=== PATIENT | female | born 1950 | race Caucasian/White ===

== ENCOUNTER → 2016-05-03 | Outpatient (CLI) | payer OTHER ==
[~2016-05-03] MED LIST: ADVIN50/60 INH; ALBU1AER9; ASPEC81 PO; AZITTAB PO; CYAN500T PO; FLV400 PO; LISI-725 PO; LSX20 PO; PRLSR20 PO; SIMV20TA2 PO; SNG10 PO; TRAM-10 PO
[2016-05-03 14:18] LABS: BASO % 0.6 %; BASO ABS # 0.03 K/uL (0-0.2); COMPLETE YES; EOS % 7.6 %; HEMATOCRIT 36.9 % (37-47); IG% 0.2 %; LYMPH % 19.3 %; LYMPH ABS # 1.01 K/uL (1.2-3.4); MEAN CELL VOLUME 86.2 fL (80-100); MEAN CORPUSCULAR HEMOGLOBIN 28.3 pg (25-34); MEAN CORPUSCULAR HGB CONC 32.8 g/dl (32-36); MEAN PLATELET VOLUME 10.5 fL (7.4-10.4); MONO % 8.6 %; NEUT % 63.7 %; PLATELET COUNT 270 K/uL (130-400); RED BLOOD COUNT 4.28 M/uL (4.2-5.4); WHITE BLOOD COUNT 5.23 K/uL (4.8-10.8)
[2016-05-03 14:28] LABS: ALT/SGPT 25 U/L (12-78); BLOOD UREA NITROGEN 12 mg/dl (7-18); BUN/CREATININE RATIO 16.8 (10-20); CALCIUM 8.9 mg/dl (8.5-10.1); CARBON DIOXIDE 31 mmol/L (21-32); CHLORIDE 105 mmol/L (98-107); CHOLESTEROL 206 mg/dl (0-200); CREATININE 0.69 mg/dl (0.60-1.20); GLUCOSE 112 mg/dl (70-99); POTASSIUM 4.3 mmol/L (3.5-5.1); SODIUM 143 mmol/L (136-145); TRIGLYCERIDES 124 mg/dl (0-150); VERY LOW DENSITY LIPOPROT CALC 25 mg/dl
[2016-05-03 14:31] LABS: ALB/GLOB RATIO 1.2 (0.9-2); ALKALINE PHOSPHATASE 111 U/L (45-117); AST/SGOT 21 U/L (15-37); HDL CHOLESTEROL 52 mg/dl; LDL CHOLESTEROL CALCULATED 129 mg/dl
== END | disposition home or self-care (01) ==
LOC: C.LABSPEC 13:37
PROVIDERS: ATTEND Family Medicine
DX: I10 Essential (primary) hypertension (principal); E78.2 Mixed hyperlipidemia; K21.9 Gastro-esophageal reflux disease without esophagitis

== ENCOUNTER 2017-05-15 07:14 | Inpatient (IN) | payer OTHER ==
[2017-04-23 10:22] VITALS: Ht 148.6 cm; Wt 94.2 kg
--- NOTE | 2017-04-23 11:04 | PAT Medication Instructions ---
Service Date Apr 23, 2017. Current Home Medication List Albuterol Hfa (Ventolin Hfa), 2-4 PUFFS INH UD PRN for ASTHMA Budesonide/Formoterol Fumarate (Symbicort 160/4.5 Inhaler ), 2 PUFFS INH BID Lisinopril (Lisinopril), 1 TAB PO QAM Omeprazole (Prilosec), 20 MG PO HS Medication Instructions For Your Scheduled Surgery - Hold the following medications the morning of surgery: Lisinopril (Lisinopril), 1 TAB PO QAM - Take the following medications the morning of surgery with a sip of water: Albuterol Hfa (Ventolin Hfa), 2-4 PUFFS INH UD PRN for ASTHMA (IF NEEDED, AND BRING IT WITH YOU TO THE HOSPITAL) Budesonide/Formoterol Fumarate (Symbicort 160/4.5 Inhaler ), 2 PUFFS INH BID - Take the following medications as scheduled the night before surgery: Omeprazole (Prilosec), 20 MG PO HS Albuterol Hfa (Ventolin Hfa), 2-4 PUFFS INH UD PRN for ASTHMA (IF NEEDED) Budesonide/Formoterol Fumarate (Symbicort 160/4.5 Inhaler ), 2 PUFFS INH BID If you have any questions please call us at [phone] or [phone] or [phone]
[2017-04-23 13:26] LABS: BASO % 0.7 %; BASO ABS # 0.04 K/uL (0-0.2); EOS % 7.8 %; EOS ABS # 0.46 K/uL (0-0.5); HEMATOCRIT 36.5 % (37-47); HEMOGLOBIN 11.7 g/dL (12.0-16.0); IG# 0.01 K/uL (0.00-0.02); LYMPH % 22.7 %; LYMPH ABS # 1.34 K/uL (1.2-3.4); MEAN CELL VOLUME 87.1 fL (80-100); MEAN CORPUSCULAR HEMOGLOBIN 27.9 pg (25-34); MEAN CORPUSCULAR HGB CONC 32.1 g/dl (32-36); MEAN PLATELET VOLUME 10.6 fL (7.4-10.4); MONO % 7.8 %; MONO ABS # 0.46 K/uL (0.11-0.59); NEUT % 60.8 %; NEUT ABS # 3.59 K/uL (1.4-6.5); PLATELET COUNT 298 K/uL (130-400); RED CELL DISTRIBUTION WIDTH CV 13.6 % (11.5-14.5); RED CELL DISTRIBUTION WIDTH SD 43.4 fL (36.4-46.3)
[2017-04-23 13:39] LABS: INR 0.9 (0.9-1.1); PTT PATIENT 25.7 SECONDS (21.0-31.0)
[2017-04-23 13:44] LABS: ALBUMIN 3.7 gm/dl (3.4-5.0); CREATININE 0.7 mg/dl (0.60-1.20); POTASSIUM 4.2 mmol/L (3.5-5.1)
--- NOTE | 2017-05-14 12:31 | HISTORY & PHYSICAL EXAMINATION ---
DATE OF ADMISSION: 05/15/2017 CHIEF COMPLAINT: Chronic left knee pain. HISTORY OF PRESENT ILLNESS: A 67-year-old female patient of Dr. Chavez'dago complaining of chronic left knee pain, longstanding, progressively getting worse. The patient has failed conservative treatment including intraarticular injections, narcotic medications, anti-inflammatories and the use a brace and walker. The patient has increased pain with weightbearing activities and her pain does interfere with her activities of daily living. PAST MEDICAL HISTORY: Hypertension, hypercholesterolemia, asthma, sleep apnea, acid reflux, and obesity. SOCIAL HISTORY: Nonsmoker, nondrinker. PAST SURGICAL HISTORY: D&C, x2, hysterectomy, TMJ, ankle fracture on the left, tibial plateau fracture on the left. FAMILY HISTORY: Noncontributory. REVIEW OF SYSTEMS: Chronic left knee pain, otherwise denies any shortness of breath, chest pain, nausea, vomiting or any other joint complaints. MEDICATIONS: Prilosec 20 mg daily, Symbicort 80 mcg/4.5 mcg 2 puffs twice daily, HFA aerosol inhaler 1 the morning and evening, lisinopril 2.5 mg daily, Proventil HFA 90 mcg 2 puffs every 4-6 hours p.r.n. ALLERGIES: INCLUDE CODEINE WHICH IS GI UPSET. PHYSICAL EXAMINATION: GENERAL: Well-developed, well-nourished 67-year-old female in no acute distress. She is alert and oriented x3 and pleasant. HEENT: Normocephalic, atraumatic. Extraocular motions are intact. Pupils are equal and reactive to light. HEART: Regular rate and rhythm, no murmurs appreciated. LUNGS: Clear. ABDOMEN: Soft, nontender, bowel sounds present. EXTREMITIES: Left knee - mild effusion with limited range of motion of 0-100. She has a neutral alignment. The patient has crepitation with passive range of motion. She has 4/5 strength. NEUROLOGIC: Neurovascularly, she is intact in her left lower extremity. DIAGNOSES: Left knee end-stage osteoarthritis, hypertension, hypercholesterolemia, asthma, sleep apnea, acid reflux, and obesity. PLAN: The patient was advised of her diagnosis. Indications, risks, benefits, and postop course have all been reviewed. The patient wishes to proceed with a left total knee arthroplasty. Necessary consent forms, preoperative testing and clearances will be obtained.
[~2017-05-15] VITALS: Ht 148.6 cm; Wt 94.2 kg
[2017-05-15] VITALS (8 sets, daily range): BP systolic 119–172; BP diastolic 65–84; PULSE 65–81; TEMP 36.4–36.9; O2SAT 93–99
[2017-05-15] MEDS: TRANEXAMIC ACID INJ 1,000 MG in SYRINGE 0 ML IV SCH ×2 (06:30→09:45)
[~2017-05-15 07:14] MED LIST changes: +ACETAMINOPHEN 500 MG TAB PO SCH; -ADVIN50/60 INH; -ALBU1AER9; -ASPEC81 PO; -AZITTAB PO; +BUPIVACAINE 0.25% 30 ML VIAL ONE; +BUPIVACAINE 0.5 % 5 MG/1 ML PF 10ML VIAL ONE; +CEFAZOLIN 2000MG IV PUSH 15 ML IV SCH; -CYAN500T PO; +CeleBREX 200 MG CAP PO SCH; +DEXAMETHASONE 4 MG TAB PO SCH; +FAMOTIDINE 20 MG TAB PO SCH; -FLV400 PO; +GABAPENTIN 300 MG CAP PO SCH; +LACTATED RINGER'S 1000ML 1,000 ML IV SCH; -LISI-725 PO; +LSN25 PO; -LSX20 PO; +METOCLOPRAMIDE HCL 10 MG TAB PO SCH; +ROPIVACAINE 5MG/ML 30 ML 150 MG, BUPIVACAINE 0.5% MPF INJ 30 ML, EpINEphrine HCL INJ 0.... INFIL SCH; -SIMV20TA2 PO; -SNG10 PO; +SYMIN160 INH; -TRAM-10 PO; +TRANEXAMIC ACID INJ 1,000 MG in SYRINGE 0 ML IV SCH; +VNTHFA/IN INH
[2017-05-15] MEDS ORDERED: PROPOFOL IV EMULSION 10 MG/ML 20 ML VIAL IV ONE ×2 (07:59→08:48)
[2017-05-15] MEDS ORDERED: EpHEDrine SULFATE 50MG/5ML SYR ONE (07:59)
[2017-05-15] MEDS ORDERED: LIDOCAINE HCL 2% 2 ML VIAL (20MG/ML) ONE (07:59)
[2017-05-15] MEDS ORDERED: MIDAZOLAM HCL 1 MG/ML 2ML VIAL ONE (08:00)
[2017-05-15] MEDS ORDERED: FENTANYL CITRATE INJ 50 MCG/1 ML 2 ML VIAL ONE (08:00)
--- NOTE | 2017-05-15 09:35 | History & Physical Bridge Note ---
H&P Re-Evaluation Bridge Note: I have examined the patient, reviewed the History & Physical and in the interval since the performance of the History & Physical I have noted the following changes of clinical significance: No changes noted
[2017-05-15] MEDS ORDERED: BACITRACIN 50000 UNIT VIAL ONE (09:52)
[2017-05-15] MEDS ORDERED: POVIDONE-IODINE OP SOLN 30 ML BTL ONE (09:52)
[2017-05-15] MEDS ORDERED: ORTHO JOINT ANESTHETIC ONE (09:52)
--- NOTE | 2017-05-15 12:28 | [facility] Post Operative Brief Note ---
Immediate Operative Summary Operative Date May 15, 2017. Pre-Operative Diagnosis Left knee end-stage osteoarthritis,depressed lateral tibial plateau facture,morbid obesity Post-Operative Diagnosis same Procedure(s) Performed Left total knee arthroplasty-cemented,lateral release and increased difficulty due to morbid obesity,application superficial wound vac Surgeon Dr. Chavez Directory Compiler Surgeon(s) Judson Cook PA-C Estimated Blood Loss 15ML Findings Consistent with Post-Op Diagnosis Specimens A. Left knee bone and tissue. Drains 2 hemovac Anesthesia Type MAC [facility]
[2017-05-15] MEDS ORDERED: SOD PHOSPHATE/SOD BIPHOSPHATE ENEMA 132 ML BTL PR PRN (12:30)
[2017-05-15] MEDS ORDERED: ZOLPIDEM TARTRATE 5 MG TAB PO PRN (12:30)
[2017-05-15] MEDS ORDERED: BISACODYL 10 MG SUPP PR PRN (12:30)
[2017-05-15] MEDS ORDERED: ONDANSETRON INJ 2 MG/ML 2 ML VIAL IV PRN (12:30)
[2017-05-15] MEDS ORDERED: ACETAMINOPHEN 325 MG TAB PO PRN (12:30)
[2017-05-15] MEDS ORDERED: MAGNESIUM HYDROXIDE SUSP 30 ML UDC PO PRN (12:30)
[2017-05-15] MEDS ORDERED: MoRPHine SULFATE 2 MG/ML CARP IV PRN (12:30)
[2017-05-15] MEDS ORDERED: METOCLOPRAMIDE HCL INJ 5 MG/ML 2 ML VIAL IV PRN (12:30)
--- NOTE | 2017-05-15 12:49 | DIAGNOSTIC IMAGING REPORT ---
L KNEE 1 OR 2 VIEWS ROUTINE CLINICAL HISTORY: AP/LATERAL IN PACU LEFT KNEE joint replacement COMPARISON: None. DISCUSSION: Anatomic alignment post left knee total arthroplasty. Good contact between prosthetic and underlying bone. Surgical drains are in position. Expected soft tissue postoperative change. IMPRESSION: Anatomic alignment status post total left knee arthroplasty. The above report was generated using voice recognition software. It may contain grammatical, syntax or spelling errors. Electronically signed by: Judson Aquino M.D. 05/15/2017 12:48 PM Dictated Date/Time: 05/15/2017 12:47 PM
--- NOTE | 2017-05-15 12:56 | Anesthesiology Progress Note ---
Anesthesia Post Op Note Date & Time May 15, 2017 at 12:56 Vital Signs Pain Intensity: 0 Vital Signs Past 12 Hours Date Time Temp Pulse Resp B/P (MAP) Pulse Ox O2 Delivery O2 Flow Rate FiO2 05/15/17 12:50 36.4 88 16 146/73 99 Nasal Cannula 4 05/15/17 12:40 87 16 154/77 99 Oxymask 10 05/15/17 12:30 89 16 120/74 99 Oxymask 10 05/15/17 12:23 36.2 91 16 140/68 98 Oxymask 10 05/15/17 08:01 36.9 71 20 172/68 96 Room Air Notes Mental Status: alert / awake / arousable, participated in evaluation Pt Amnestic to Procedure: Yes Nausea / Vomiting: adequately controlled Pain: adequately controlled Airway Patency, RR, SpO2: stable & adequate BP & HR: stable & adequate Hydration State: stable & adequate Anesthetic Complications: no major complications apparent
[2017-05-15] MEDS ORDERED: EpHEDrine SULFATE INJ 50 MG/ML AMP IV PRN (13:00)
[2017-05-15] MEDS ORDERED: ATROPINE SULFATE 0.1 MG/ML 5ML SYR IV PRN (13:00)
--- NOTE | 2017-05-15 14:10 | Medical Consult ---
Consultation Date of Consultation: May 15, 2017. Attending Physician: Gigi Chavez M.D. Reason for Consultation: Post-Operative Management History of Present Illness Ms. Camacho is a 67 y/o female with PMHx of HTN, HLD, Asthma, JEN, and GERD who is S/P L TKA with Wound Vac on 05/15. Patient reports fracturing her L ankle and knee and discomfort has progressed. She currently has no feeling from the waist down due to anesthesia. Therefore currently has no pain. She is resting with eyes closed but easily awakens to verbal stimuli. She reports good control with her BP on Lisinopril. She does not report recent asthma attacks. She carries a diagnosis of JEN but denies CPAP/BiPAP or O2 at night. She denies any cardiac history including WI or CHF. She denies H/O DVT/PE. Past Medical/Surgical History 1. Asthma 2. HTN 3. HLD 4. JEN 5. GERD 6. S/P x 2 7. S/P Hysterectomy Family History Patient reports no known family medical history. Social History Smoking Status: Never Smoker Smokeless Tobacco Use: No Alcohol Use: none Drug Use: none Marital Status: Housing Status: lives with significant other Allergies Coded Allergies: Unclassified Drugs (Verified Allergy, Unknown, SEASONAL ALLERGIES - COUGHING, SNEEZING, TRIGGERS FOR ASTHMA, 05/15/17) Atorvastatin (Verified Adverse Reaction, Unknown, LEG PAINS, 05/15/17) Codeine (Verified Adverse Reaction, Unknown, GI UPSET, 05/15/17) Pravastatin (Verified Adverse Reaction, Unknown, LEG PAINS, 05/15/17) Simvastatin (Verified Adverse Reaction, Unknown, LEG PAINS, 05/15/17) Current Inpatient Medications Current Inpatient Medications Medications (Trade) Dose Ordered Sig/Khanh Route Start Time Stop Time Status Last Admin Dose Admin Miscellaneous Information (Order Awaiting Action) 1 ea QS N/A 05/15/17 16:00 06/14/17 15:59 Budesonide/ Formoterol Fumarate (Symbicort 160/ 4.5 Inh) 2 puffs BID INH 05/15/17 21:00 06/14/17 20:59 Lisinopril (Zestril Tab) 2.5 mg QAM PO 05/16/17 09:00 06/15/17 08:59 Potassium Chloride/Dextrose/ Sod Cl 1,000 ml @ 100 mls/hr Q10H IV 05/15/17 14:00 05/16/17 12:22 Cefazolin Sodium 2000 mg/Syringe 15 ml @ 3.75 mls/ min Q8H IV 05/15/17 18:00 05/16/17 02:03 Celecoxib (CeleBREX CAP) 200 mg BID PO 05/15/17 21:00 06/14/17 20:59 Acetaminophen/ Hydrocodone Bitart ([place] 5/325 Tab) 1 TABLET FOR PAIN RATING... Q4H PRN PO 05/15/17 12:30 05/29/17 12:29 Morphine Sulfate (MoRPHine SULFATE INJ) 2 mg Q2H PRN IV 05/15/17 12:30 05/29/17 12:29 Acetaminophen (Tylenol Tab) 650 mg Q6H PRN PO 05/15/17 12:30 06/14/17 12:29 Magnesium Hydroxide (Milk Of Magnesia Susp) 30 ml Q6H PRN PO 05/15/17 12:30 06/14/17 12:29 Bisacodyl (Dulcolax Supp) 10 mg DAILY PRN FL 05/15/17 12:30 06/14/17 12:29 Sodium Biphosphate/ Sodium Phosphate (Fleet Enema) 132 ml DAILY PRN FL 05/15/17 12:30 06/14/17 12:29 Docusate Sodium (coLACE CAP) 100 mg BID PO 05/15/17 21:00 06/14/17 20:59 Diphenhydramine HCl (Benadryl Cap) 25 mg Q8H PRN PO 05/15/17 12:30 06/14/17 12:29 Zolpidem Tartrate (Ambien Tab) 5 mg HSZ PRN PO 05/15/17 12:30 06/14/17 12:29 Multivitamins (Multivitamin Tab) 1 tab QAM PO 05/16/17 09:00 06/15/17 08:59 Ondansetron HCl (Zofran Inj) 4 mg Q6H PRN IV 05/15/17 12:30 06/14/17 12:29 Metoclopramide HCl (Reglan Inj) 10 mg Q6H PRN IV 05/15/17 12:30 06/14/17 12:29 Pantoprazole Sodium (Protonix Tab) 40 mg QAM PO 05/16/17 09:00 05/19/17 09:01 Tramadol HCl (Ultram Tab) 1 tablet for pain rating... Q4H PRN PO 05/15/17 12:30 06/14/17 12:29 Rivaroxaban (Xarelto Tab) 10 mg Q24H PO 05/15/17 21:30 05/27/17 21:29 Ephedrine Sulfate (EpHEDrine SULFATE INJ) 5 mg Q5M PRN IV 05/15/17 13:00 05/15/17 18:00 Atropine Sulfate (Atropine Sulfate 0.1mg/ml Inj) 0.5 mg Q1M PRN IV 05/15/17 13:00 05/15/17 18:00 Review of Systems General/Constitutional: Denies fever/chills, fatigue ENT: Denies visual changes, nasal drainage, hearing loss, sore throat, trouble swallowing Cardiovascular: Denies chest pain, palpitations, edema Respiratory: Denies cough, sputum, SOB, wheezing, orthopnea GI: Denies nausea, vomiting, abdominal pain, constipation, diarrhea, melena/ hematochezia : Denies dysuria Musculoskeletal: Denies joint/muscle aches, swelling Neurologic: + b/l lower extremity numbness 2/2 anesthesia; Denies dizziness/ lightheadedness Hematologic/Lymphatic: Denies bleeding/clotting abnormalities Skin: Denies rash Physical Exam Date Time Temp Pulse Resp B/P (MAP) Pulse Ox O2 Delivery O2 Flow Rate FiO2 05/15/17 13:40 36.4 76 15 144/80 (101) 97 Nasal Cannula 2.0 05/15/17 13:10 Nasal Cannula 2.0 05/15/17 13:10 Nasal Cannula 2.0 05/15/17 13:10 36.5 81 16 149/80 (103) 97 Nasal Cannula 2.0 05/15/17 12:50 36.4 88 16 146/73 99 Nasal Cannula 4 05/15/17 12:40 87 16 154/77 99 Oxymask 10 05/15/17 12:30 89 16 120/74 99 Oxymask 10 05/15/17 12:23 36.2 91 16 140/68 98 Oxymask 10 05/15/17 08:01 36.9 71 20 172/68 96 Room Air General Appearance: WDWN in NAD who is A&O x 3 HEENT: Head is normocephalic/atraumatic; EOMI; PERRLA; Hearing grossly intact; Mucous membranes moist; Pharynx negative for exudate/lesions Neck: Supple; Trachea midline; Neg JVD Heart: RRR with no M/G/R Lungs: CTA in all lung monet bilaterally; Respirations unlabored; Neg accessory muscle use Abdomen: Soft, non-tender, non-distended; Positive BS x 4 quadrants Extremities: Capillary refill < 2 seconds; Neg cyanosis or edema; JIMY bandage to L knee that is C/D/I with wound vac placed and drain Neurological: Speech clear; no motor or sensory function to b/l lower extremities 2/2 anesthesia Psychiatric: Appropriate mood/affect Skin: Normal Color; Warm/Dry Laboratory Results Last 24 Hours Test 05/15/17 13:45 Assessment & Plan Ms. Camacho is a 67 y/o female with PMHx of HTN, HLD, Asthma, JEN, and GERD who is S/P L TKA with Wound Vac on 05/15. S/P L TKA with Wound Vac on 05/15: - Pain management, IVF, PT/OT, DVT Prophylaxis per primary - DVT Prophylaxis - Xarelto HTN: - Some elevated readings but rather stable - Continue Lisinopril 2.5 mg daily Asthma without Exacerbation/JEN: - Symbicort 2 puffs BID and Ventolin PRN - Reports she does not use night O2 or CPAP/BiPAP for JEN Resident Physician Supervision Note: Pt evaluated independently. I discussed the case with the PA and agree with the findings and plan as documented in the note. Any exceptions or clarifications are listed here: 67 y/o F HTN, HPL, asthma, JEN - post TKA Recovering well - no CP, SOB, N/V or excessive pain OE AAO x 3 S1,2 R CTAB NT, ND No CCE P: IVF, pain control, DVT prophylaxis - PT/OT per ortho Resume antihypertensives AM Does not treat JEN - can apply NC if needed as we would expect some overnight desaturation Cont prescribed inhalers Documented By: Lane Martinez
[2017-05-15] MEDS: D5W AND 1/2NSS + 20MEQ KCL 1,000 ML IV SCH (14:19)
--- NOTE | 2017-05-15 14:44 | OPERATIVE REPORT ---
DATE OF OPERATION: 05/15/2017 INDICATION FOR PROCEDURE: The patient is a 67-year-old female who presents with chronic osteoarthritis of the left knee. She has a history of lateral tibial plateau fracture. This went on to heal. Radiographs demonstrate she has depressed lateral tibial plateau fractures, [id number] in the medial compartment and she has tricompartmental DJD. She also is complicated by morbid obesity, BMI of 42.7. She has very limited range of motion. She has failed all conservative management. PREOPERATIVE DIAGNOSES: End-stage osteoarthritis and posttraumatic osteoarthritis status post tibial plateau fracture, left knee, with morbid obesity, body mass index of 42.7. POSTOPERATIVE DIAGNOSES: Same. PROCEDURE: Left total knee arthroplasty including lateral release, increased difficulty due to morbid obesity, BMI of 42.7, and application of a superficial wound VAC. SURGEON: Dr. Chavez. CATEGORY ANALYST: Judson Cook PA-C. ANESTHESIA: Spinal, adductor nerve block and Orthomix. OPERATIVE PROCEDURE: The patient was taken to the operating room and anesthetized under anesthesia as dictated. She was placed supine on the operating room table. Pneumatic tourniquet was raised over her very obese upper thigh. Her left knee was examined. She had full extension but flexion only to 90 degrees. She had crepitation, no instability. She had small scars from prior surgery. Her left lower extremity was prepped and draped with ChloraPrep in usual sterile fashion. Her leg was elevated, exsanguinated with Esmarch bandage. Pneumatic tourniquet was raised to 350 mmHg because of her obesity. An anterior incision was made across the knee. We had this extended slightly larger than normal because of the obesity and her size. Moderately deep layer of fat was divided down the fascia. Subcutaneous bleeders were cauterized. Subcutaneous flaps were elevated. An incision was made through the medial retinaculum and extended up in the mid third of the quadriceps tendon and extended down to the medial tibial tubercle. Intraarticular findings demonstrate she had grade 4 [id number] medial compartment, grade 4 wear lateral compartment, she had significantly depressed lateral tibial plateau. She had discoid meniscus imbedded into the tibial plateau. She had some grade 2 and 3 wear in the trochlear groove and patellofemoral joint. The patient had tricompartmental osteophytes. She also had intraarticular adhesions in the synovium. She had very stiff knee. To expose the knee, I resected the infrapatellar fat pad, resected the menisci, cruciate ligaments, osteophytes, released the lateral synovial bands, resected some of the fat pad over the anterior femur for placement of the component at the superior articular surface area. The femur was exposed. Intramedullary drill hole was made into the femur. The guide rodolfo was placed. Distal femoral cutting guide for the [employer] total knee arthroplasty system was used. Distal femoral cutting guide was placed in 5 degrees of valgus cut, we did a standard distal femoral cut. Then, we extended the knee, did a subperiosteal peel lateral release, reproduced the width using a freehand cut technique, a 32 patellar component. The drill holes were made for the component. The excess lateral facet was beveled off to prevent any impingement. The femur was re-exposed and the measuring guide was placed onto the femur. Femur sized for a 5, she was somewhere between a 4 and a 5, the 4 would notch, so I chose to do a 5. The drill holes were made in approximately 3 degrees of external rotation to match the epicondylar axis of the femur. The drill holes for the cutting guide were placed and then the 4-in-1 cutting guide was pinned in position, and then the anterior, posterior and chamfer cuts were made. Then, the tibia was subluxed and external tibial cutting guide was adjusted to make a perpendicular cut to the long axis of the tibia. Cut was made below the most deficient lateral side where she had significant depression, so the cut was made just above the tip of the fibula at that level proximally. The bone was very sclerotic in lateral compartment, so we made some additional drill holes there for cement fixation. Then, we used the laminar energy advisor to assess ligamentous balance and we removed any posterior osteophytes and meniscal remnants and the remainder of the PCL. The ligaments were balanced in extension and flexion. The tibia was exposed. A 4 tibial trial was externally rotated in line with the tibial tubercle, pinned in position and a punch for the stem was used. In very sclerotic lateral bone, we had to use a small saw to not split the bone with hard punch due to the sclerotic bone there. Punch was seated fully and then we went ahead and placed the femoral trial in position, centered it, and used the notch cutting devices, placed a collet and did a trial reduction, a 15 poly insert gave balanced ligaments through full range of motion and the patella had some slight lateral liftoff during tracking, so I felt we should go ahead and do a lateral release. So I did a lateral release, leaving as much synovium intact as possible. Then, went ahead and assessed patellar tracking which was central. The trials were removed and the anesthetic cocktail was injected per protocol. The knee was copiously irrigated with pulsatile lavage antibiotic solution and bacitracin. The final components were cemented with Simplex G cement. Final components were the 5 Oxinium [employer] femur, size 4 tibial baseplate, the 15 mm high flex poly insert and then the 32 dome patella. While cement cured, we used Betadine soak protocol. Then, this was irrigated out copiously with antibiotic solution and bacitracin. Then, 2 drains were brought out laterally and connected to Hemovac. The quadriceps tendon and medial retinaculum were closed with interrupted [id number] #1 Vicryl sutures. The knee was taken through full range of motion and repair was secure. We were able to get full extension and flexion to about 115 degrees where the thigh met her calf. The subcutaneous tissues were closed with interrupted 2-0 Vicryl and the skin was closed with adriana and a superficial wound VAC was then applied. Judson Cook PA-C, was my assistant professor of biology, he functioned as assistant professor of biology for the entire procedure, he assisted in patient positioning, prepping, draping, soft tissue retraction, instrument management, and he assisted in subcutaneous and skin closure and placed a superficial wound VAC in place and will participate in postoperative care of the patient. The patient did tolerate the procedure well with about 15 mL of intraoperative blood loss only. I attest to the content of the Intraoperative Record and any orders documented therein. Any exception s are noted below.
[2017-05-15] MEDS: TRAMADOL HCL 50 MG TAB PO PRN (16:47)
[2017-05-15] MEDS ORDERED: NURSING VERBAL MED ORDER ONE (17:30)
[2017-05-15] MEDS: CEFAZOLIN IV 2,000 MG in SYRINGE 0 ML IV SCH (17:42)
[2017-05-15] MEDS ORDERED: ALBUTEROL HFA 8 GM INHALER INH PRN (17:45)
[2017-05-15] MEDS: DOCUSATE SODIUM 100 MG CAP PO SCH (21:11)
[2017-05-15] MEDS: HYDROCODONE/ACETAMIN 5/325MG TAB PO PRN (21:11)
[2017-05-15] MEDS: RIVAROXABAN 10 MG TAB PO SCH (21:12)
[2017-05-15] MEDS: CeleBREX 200 MG CAP PO SCH (21:12)
[2017-05-15] MEDS: BUDESONIDE/FORMOTEROL FUMARATE 160/4.5 60 PUFFS/INHALER INH SCH (21:14)
[2017-05-16 00:10] VITALS: O2SAT 96
[2017-05-16] MEDS: D5W AND 1/2NSS + 20MEQ KCL 1,000 ML IV SCH ×2 (00:15→10:09)
[2017-05-16] MEDS: CEFAZOLIN IV 2,000 MG in SYRINGE 0 ML IV SCH (02:59)
[2017-05-16 03:48] VITALS: BP 117/67; PULSE 67; TEMP 36.7; O2SAT 98
[2017-05-16] MEDS: HYDROCODONE/ACETAMIN 5/325MG TAB PO PRN ×4 (04:59→19:40)
[2017-05-16 07:01] LABS: HEMATOCRIT 30.9 % (37-47); HEMOGLOBIN 10.3 g/dL (12.0-16.0); MEAN CELL VOLUME 85.4 fL (80-100); MEAN CORPUSCULAR HEMOGLOBIN 28.5 pg (25-34); MEAN CORPUSCULAR HGB CONC 33.3 g/dl (32-36); MEAN PLATELET VOLUME 9.4 fL (7.4-10.4); PLATELET COUNT 237 K/uL (130-400); RED CELL DISTRIBUTION WIDTH CV 13.5 % (11.5-14.5); WHITE BLOOD COUNT 10.21 K/uL (4.8-10.8)
[2017-05-16 07:31] VITALS: BP 135/68; PULSE 69; TEMP 36.9; O2SAT 93
[2017-05-16 07:33] LABS: CALCIUM 8.1 mg/dl (8.5-10.1); CREATININE 0.68 mg/dl (0.60-1.20); POTASSIUM 4.3 mmol/L (3.5-5.1)
[2017-05-16] MEDS: BUDESONIDE/FORMOTEROL FUMARATE 160/4.5 60 PUFFS/INHALER INH SCH ×2 (08:55→20:55)
[2017-05-16] MEDS: DOCUSATE SODIUM 100 MG CAP PO SCH ×2 (08:56→20:55)
[2017-05-16] MEDS: MULTIVITAMIN TAB PO SCH (08:56)
[2017-05-16] MEDS: CeleBREX 200 MG CAP PO SCH ×2 (08:56→20:55)
[2017-05-16] MEDS: PANTOprazole SOD 40 MG TAB PO SCH (08:56)
[2017-05-16] MEDS: LISINOPRIL 2.5 MG TAB PO SCH (08:56)
--- NOTE | 2017-05-16 08:56 | Orthopedic Progress Note ---
Orthopedic Progress Note Date of Service May 16, 2017. Subjective Post OP Day: 1 Reports: feeling well, pain controlled w PO medications, Denies: complaints, chest pain, SOB, nausea / vomiting, light headedness, calf pain Objective calves soft nontender, N/V intact, capillary refill less than 2 sec., dressing C /D/I, A&O x3, toes mobile + wound vac Date Time Temp Pulse Resp B/P (MAP) Pulse Ox O2 Delivery O2 Flow Rate FiO2 05/16/17 07:31 36.9 69 19 135/68 (90) 93 Room Air 05/16/17 07:10 Room Air 05/16/17 03:48 36.7 67 16 117/67 (84) 98 Room Air 05/16/17 00:10 96 Room Air 05/15/17 23:15 36.6 79 16 119/65 (83) 94 Room Air 05/15/17 19:47 36.5 65 16 134/73 (93) 93 Room Air 05/15/17 16:06 36.6 75 16 142/84 (103) 95 Room Air 05/15/17 16:05 Room Air 05/15/17 14:54 36.4 74 16 151/83 (105) 99 Nasal Cannula 2.0 05/15/17 14:16 75 16 149/82 (104) 98 Nasal Cannula 2.0 05/15/17 13:40 36.4 76 15 144/80 (101) 97 Nasal Cannula 2.0 05/15/17 13:10 Nasal Cannula 2.0 05/15/17 13:10 Nasal Cannula 2.0 05/15/17 13:10 36.5 81 16 149/80 (103) 97 Nasal Cannula 2.0 05/15/17 12:50 36.4 88 16 146/73 99 Nasal Cannula 4 05/15/17 12:40 87 16 154/77 99 Oxymask 10 05/15/17 12:30 89 16 120/74 99 Oxymask 10 05/15/17 12:23 36.2 91 16 140/68 98 Oxymask 10 Laboratory Results 24 Hours: Test 05/16/17 06:51 Hematocrit 30.9 % Hemoglobin 10.3 g/dL Assessment & Plan Assessment: POD #1, Left TKA Plan: PT/ OT DVT proph- Xarelto D/C planning- [place] first choice vs OPPT Appreciate medicine input Inhouse Planning Pain Management: Celebrex, Ultram, Bath, Morphine, PO Tylenol DVT Prophylaxis: TEDs, SCDs, Xarelto Discharge Planning Discharge Planning: home with oppt, senior care facility, uncertain Pain Management: Celebrex, Ultram, Bath, Morphine, PO Tylenol DVT Prophylaxis: TEDs, SCDs, Xarelto Therapy: Physical Therapy, Occupational Therapy
--- NOTE | 2017-05-16 11:21 | Progress Note ---
Subjective Date of Service: May 16, 2017. Subjective Pt evaluation today including: conversation w/ patient, physical exam, lab review, review of inpatient medication list Pain: left knee pain controlled PO Intake: adequate Voiding: no voiding problems patient doing well, no chest pain, no dyspnea eating well, no vomiting small BM today, + flatus reviewed labs, Hb down slightly, Cr stable Review of Systems Musculoskeletal: + joint pain (left knee) All Other Systems: Reviewed and Negative Medications Current Inpatient Medications Medications (Trade) Dose Ordered Sig/Khanh Route Start Time Stop Time Status Last Admin Dose Admin Miscellaneous Information (Order Awaiting Action) 1 ea QS N/A 05/15/17 16:00 06/14/17 15:59 Budesonide/ Formoterol Fumarate (Symbicort 160/ 4.5 Inh) 2 puffs BID INH 05/15/17 21:00 06/14/17 20:59 05/16/17 08:55 2 PUFFS Lisinopril (Zestril Tab) 2.5 mg QAM PO 05/16/17 09:00 06/15/17 08:59 05/16/17 08:56 2.5 MG Potassium Chloride/Dextrose/ Sod Cl 1,000 ml @ 100 mls/hr Q10H IV 05/15/17 14:00 05/16/17 12:22 05/16/17 10:09 100 MLS/HR Celecoxib (CeleBREX CAP) 200 mg BID PO 05/15/17 21:00 06/14/17 20:59 05/16/17 08:56 200 MG Acetaminophen/ Hydrocodone Bitart ([place] 5/325 Tab) 1 TABLET FOR PAIN RATING... Q4H PRN PO 05/15/17 12:30 05/29/17 12:29 05/16/17 08:59 2 TAB Morphine Sulfate (MoRPHine SULFATE INJ) 2 mg Q2H PRN IV 05/15/17 12:30 05/29/17 12:29 Acetaminophen (Tylenol Tab) 650 mg Q6H PRN PO 05/15/17 12:30 06/14/17 12:29 Magnesium Hydroxide (Milk Of Magnesia Susp) 30 ml Q6H PRN PO 05/15/17 12:30 06/14/17 12:29 Bisacodyl (Dulcolax Supp) 10 mg DAILY PRN AL 05/15/17 12:30 3/9/18 12:29 Sodium Biphosphate/ Sodium Phosphate (Fleet Enema) 132 ml DAILY PRN AL 05/15/17 12:30 06/14/17 12:29 Docusate Sodium (coLACE CAP) 100 mg BID PO 05/15/17 21:00 06/14/17 20:59 05/16/17 08:56 100 MG Diphenhydramine HCl (Benadryl Cap) 25 mg Q8H PRN PO 05/15/17 12:30 06/14/17 12:29 Zolpidem Tartrate (Ambien Tab) 5 mg HSZ PRN PO 05/15/17 12:30 06/14/17 12:29 Multivitamins (Multivitamin Tab) 1 tab QAM PO 05/16/17 09:00 06/15/17 08:59 05/16/17 08:56 1 TAB Ondansetron HCl (Zofran Inj) 4 mg Q6H PRN IV 05/15/17 12:30 06/14/17 12:29 Metoclopramide HCl (Reglan Inj) 10 mg Q6H PRN IV 05/15/17 12:30 06/14/17 12:29 Pantoprazole Sodium (Protonix Tab) 40 mg QAM PO 05/16/17 09:00 05/19/17 09:01 05/16/17 08:56 40 MG Tramadol HCl (Ultram Tab) 1 tablet for pain rating... Q4H PRN PO 05/15/17 12:30 06/14/17 12:29 05/15/17 16:47 100 MG Rivaroxaban (Xarelto Tab) 10 mg Q24H PO 05/15/17 21:30 05/27/17 21:29 05/15/17 21:12 10 MG Albuterol (Ventolin Hfa Inhaler) 2 puffs Q4H PRN INH 05/15/17 17:45 06/14/17 17:44 Objective Vital Signs Date Time Temp Pulse Resp B/P (MAP) Pulse Ox O2 Delivery O2 Flow Rate FiO2 05/16/17 07:31 36.9 69 19 135/68 (90) 93 Room Air 05/16/17 07:10 Room Air 05/16/17 03:48 36.7 67 16 117/67 (84) 98 Room Air 05/16/17 00:10 96 Room Air 05/15/17 23:15 36.6 79 16 119/65 (83) 94 Room Air 05/15/17 19:47 36.5 65 16 134/73 (93) 93 Room Air 05/15/17 16:06 36.6 75 16 142/84 (103) 95 Room Air 05/15/17 16:05 Room Air 05/15/17 14:54 36.4 74 16 151/83 (105) 99 Nasal Cannula 2.0 05/15/17 14:16 75 16 149/82 (104) 98 Nasal Cannula 2.0 05/15/17 13:40 36.4 76 15 144/80 (101) 97 Nasal Cannula 2.0 05/15/17 13:10 Nasal Cannula 2.0 05/15/17 13:10 Nasal Cannula 2.0 05/15/17 13:10 36.5 81 16 149/80 (103) 97 Nasal Cannula 2.0 05/15/17 12:50 36.4 88 16 146/73 99 Nasal Cannula 4 05/15/17 12:40 87 16 154/77 99 Oxymask 10 05/15/17 12:30 89 16 120/74 99 Oxymask 10 05/15/17 12:23 36.2 91 16 140/68 98 Oxymask 10 Physical Exam General Appearance: WD/WN, no apparent distress Eyes: normal inspection, EOMI, sclerae normal ENT: normal ENT inspection, hearing grossly normal, pharynx normal Neck: supple, no adenopathy, no JVD, trachea midline Respiratory/Chest: chest non-tender, lungs clear, normal breath sounds, no respiratory distress, no accessory muscle use Cardiovascular: regular rate, rhythm, no edema, no gallop, no JVD, no murmur Abdomen: normal bowel sounds, non tender, soft, no organomegaly Extremities: no pedal edema, no calf tenderness, normal capillary refill, pelvis stable, + pertinent finding (left knee swollen, tender, decreased ROM) 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, no motor/sensory deficits, alert, normal mood/affect, oriented x 3 Skin: normal color, warm/dry, no rash Lymphatic: no adenopathy Laboratory Results Last 24 Hours Test 05/16/17 06:51 White Blood Count 10.21 K/uL Red Blood Count 3.62 M/uL Hemoglobin 10.3 g/dL Hematocrit 30.9 % Mean Corpuscular Volume 85.4 fL Mean Corpuscular Hemoglobin 28.5 pg Mean Corpuscular Hemoglobin Concent 33.3 g/dl RDW Standard Deviation 42.0 fL RDW Coefficient of Variation 13.5 % Platelet Count 237 K/uL Mean Platelet Volume 9.4 fL Sodium Level 135 mmol/L Potassium Level 4.3 mmol/L Chloride Level 103 mmol/L Carbon Dioxide Level 27 mmol/L Anion Gap 5.0 mmol/L Blood Urea Nitrogen 11 mg/dl Creatinine 0.68 mg/dl Est Creatinine Clear Calc Drug Dose 80.8 ml/min Estimated GFR () 105.6 Estimated GFR (Non- 91.2 BUN/Creatinine Ratio 16.9 Random Glucose 161 mg/dl Calcium Level 8.1 mg/dl Hepatitis C Antibody Screen NEG Assessment and Plan Ms. Camacho is a 67 y/o female with PMHx of HTN, HLD, Asthma, JEN, and GERD who is S/P L TKA with Wound Vac on 05/15. S/P L TKA with Wound Vac on 05/15: POD 1 - Pain well controlled today - eating and drinking well, Cr stable, stop IV fluids today - small BM today, continue Colace - DVT Prophylaxis - Xarelto HTN: - Some elevated readings but rather stable - Continue Lisinopril 2.5 mg daily Asthma without Exacerbation/JEN: - Symbicort 2 puffs BID and Ventolin PRN - Reports she does not use night O2 or CPAP/BiPAP for JEN - lungs clear today labs are stable, vitals stable will sign off at this time, please contact for any new issues that arise
[2017-05-16] MEDS: TRAMADOL HCL 50 MG TAB PO PRN (15:01)
[2017-05-16 15:39] VITALS: BP 127/66; PULSE 89; TEMP 37; O2SAT 97
[2017-05-16] MEDS: RIVAROXABAN 10 MG TAB PO SCH (20:55)
[2017-05-16 23:15] VITALS: BP 151/75; PULSE 88; TEMP 36.8; O2SAT 92
[2017-05-17 00:15] VITALS: O2SAT 96
[2017-05-17] MEDS: TRAMADOL HCL 50 MG TAB PO PRN (00:27)
[2017-05-17 07:19] LABS: HEMATOCRIT 30.3 % (37-47); HEMOGLOBIN 9.8 g/dL (12.0-16.0); MEAN CELL VOLUME 86.8 fL (80-100); MEAN CORPUSCULAR HEMOGLOBIN 28.1 pg (25-34); MEAN CORPUSCULAR HGB CONC 32.3 g/dl (32-36); MEAN PLATELET VOLUME 9.5 fL (7.4-10.4); PLATELET COUNT 210 K/uL (130-400); RED CELL DISTRIBUTION WIDTH SD 44.4 fL (36.4-46.3); WHITE BLOOD COUNT 6.55 K/uL (4.8-10.8)
[2017-05-17 07:39] VITALS: BP 137/75; PULSE 77; TEMP 36.6; O2SAT 93
[2017-05-17 07:40] LABS: CALCIUM 8.3 mg/dl (8.5-10.1); CREATININE 0.62 mg/dl (0.60-1.20); POTASSIUM 3.6 mmol/L (3.5-5.1)
--- NOTE | 2017-05-17 08:33 | Orthopedic Progress Note ---
Orthopedic Progress Note Date of Service May 17, 2017. Subjective Post OP Day: 2 Reports: feeling well, nausea / vomiting, pain controlled w PO medications, Denies: complaints, chest pain, SOB, light headedness, calf pain Additional Notes: Having some nausea this AM. Objective calves soft nontender, N/V intact, capillary refill less than 2 sec., dressing C /D/I, A&O x3, toes mobile Prevena wound vac in tact. Date Time Temp Pulse Resp B/P (MAP) Pulse Ox O2 Delivery O2 Flow Rate FiO2 05/17/17 07:39 36.6 77 16 137/75 (95) 93 Room Air 05/17/17 00:15 96 Room Air 05/16/17 23:15 36.8 88 18 151/75 (100) 92 Room Air 05/16/17 15:50 Room Air 05/16/17 15:39 37.0 89 16 127/66 (86) 97 Room Air Laboratory Results 24 Hours: Test 05/17/17 07:07 Hematocrit 30.3 % Hemoglobin 9.8 g/dL Assessment & Plan Assessment: POD #2, Left TKA Plan: PT/ OT DVT proph- Xarelto D/C planning- [place], accepted for Saturday. Appreciate medicine input Inhouse Planning Pain Management: Celebrex, Ultram, [place], Morphine, PO Tylenol DVT Prophylaxis: TEDs, SCDs, Xarelto Discharge Planning Discharge Planning: home with oppt, correction facility, uncertain Pain Management: Celebrex, Ultram, [place], Morphine, PO Tylenol DVT Prophylaxis: TEDs, SCDs, Xarelto Therapy: Physical Therapy, Occupational Therapy
[2017-05-17] MEDS: MULTIVITAMIN TAB PO SCH (09:01)
[2017-05-17] MEDS: LISINOPRIL 2.5 MG TAB PO SCH (09:01)
[2017-05-17] MEDS: DOCUSATE SODIUM 100 MG CAP PO SCH ×2 (09:01→21:09)
[2017-05-17] MEDS: CeleBREX 200 MG CAP PO SCH ×2 (09:01→21:09)
[2017-05-17] MEDS: PANTOprazole SOD 40 MG TAB PO SCH (09:01)
[2017-05-17] MEDS: BUDESONIDE/FORMOTEROL FUMARATE 160/4.5 60 PUFFS/INHALER INH SCH ×2 (09:02→21:08)
[2017-05-17] MEDS: HYDROCODONE/ACETAMIN 5/325MG TAB PO PRN ×3 (09:04→21:55)
[2017-05-17 14:55] VITALS: BP 118/67; PULSE 86; TEMP 36.5; O2SAT 95
[2017-05-17] MEDS: RIVAROXABAN 10 MG TAB PO SCH (21:08)
[2017-05-17 23:14] VITALS: BP 131/73; PULSE 100; TEMP 37.1; O2SAT 94
[2017-05-18 07:41] VITALS: BP 131/77; PULSE 77; TEMP 36.9; O2SAT 95
[2017-05-18] MEDS: BUDESONIDE/FORMOTEROL FUMARATE 160/4.5 60 PUFFS/INHALER INH SCH (08:55)
[2017-05-18] MEDS: LISINOPRIL 2.5 MG TAB PO SCH (08:55)
[2017-05-18] MEDS: DOCUSATE SODIUM 100 MG CAP PO SCH (08:55)
[2017-05-18] MEDS: MULTIVITAMIN TAB PO SCH (08:55)
[2017-05-18] MEDS: PANTOprazole SOD 40 MG TAB PO SCH (08:55)
[2017-05-18] MEDS: CeleBREX 200 MG CAP PO SCH (08:55)
[2017-05-18] MEDS: TRAMADOL HCL 50 MG TAB PO PRN (08:56)
--- NOTE | 2017-05-18 10:13 | Orthopedic Progress Note ---
Orthopedic Progress Note Date of Service May 18, 2017. Subjective Post OP Day: 3 Reports: feeling well, pain controlled w PO medications, Denies: complaints, chest pain, SOB, nausea / vomiting, light headedness, calf pain Objective calves soft nontender, N/V intact, capillary refill less than 2 sec., dressing C /D/I, A&O x3, toes mobile PREVENA IN TACT Date Time Temp Pulse Resp B/P (MAP) Pulse Ox O2 Delivery O2 Flow Rate FiO2 05/18/17 07:50 Room Air 05/18/17 07:41 36.9 77 19 131/77 (95) 95 Room Air 05/17/17 23:55 Room Air 05/17/17 23:14 37.1 100 16 131/73 (92) 94 Room Air 05/17/17 15:44 Room Air 05/17/17 14:55 36.5 86 18 118/67 (84) 95 Room Air Assessment & Plan Assessment: POD #3, Left TKA Plan: PT/ OT DVT proph- Xarelto D/C planning- [place], TODAY Appreciate medicine input Attending Addendum: I have seen and examined the patient, and agree with BENNY Cook's assessment and plan. I am covering Orthopedic Surgery call for Dr. Dupree, who is unavailable. Remy Garnett MD Inhouse Planning Pain Management: Celebrex, Ultram, [place], Morphine, PO Tylenol DVT Prophylaxis: TEDs, SCDs, Xarelto Discharge Planning Discharge Planning: home with oppt, alf facility, uncertain Pain Management: Celebrex, Ultram, [place], Morphine, PO Tylenol DVT Prophylaxis: TEDs, SCDs, Xarelto Therapy: Physical Therapy, Occupational Therapy
[2017-05-18] MEDS ORDERED: LSN25 PO (10:19)
[2017-05-18] MEDS ORDERED: PRLSR20 PO (10:19)
[2017-05-18] MEDS ORDERED: SYMIN160 INH (10:19)
[2017-05-18] MEDS ORDERED: MULT-890 PO (10:19)
[2017-05-18] MEDS ORDERED: CLC100 PO (10:19)
[2017-05-18] MEDS ORDERED: XRL10 PO (10:19)
[2017-05-18] MEDS ORDERED: VNTHFA/IN INH (10:19)
[2017-05-18] MEDS ORDERED: CLB200 PO (10:19)
[2017-05-18] MEDS ORDERED: ACET-1047 PO (10:19)
[2017-05-18] MEDS ORDERED: AMB5 PO (10:19)
[2017-05-18] MEDS ORDERED: ONDA8TAB6 PO (10:19)
[2017-05-18] MEDS ORDERED: HYDR-5688 PO (10:19)
--- NOTE | 2017-05-18 10:22 | Discharge Instructions ---
Discharge Instructions Date of Service May 18, 2017. Admission Reason for Admission: Left Knee Degenerative Joint Disease Discharge Discharge Diagnosis / Problem: LEFT TKA Discharge Goals Goal(s): Improve function Activity Recommendations Activity Level: Assistance Required . Additional Information Patient informed of condition: Yes Advance Directives: Yes DNR: No Level of Care: Skilled Communicable Disease: No Prognosis: Improving Vivas Catheter: No Instructions / Follow-Up Instructions / Follow-Up ACTIVITY RECOMMENDATIONS: SELF CARE INSTRUCTIONS AFTER TOTAL KNEE REPLACEMENT A. You may need to continue a physical therapy program after discharge from the hospital. There are several options available to you. Your doctor will assist you in selecting the best one for you. 1. An out-patient facility 2 to 3 times a week for therapy or home therapy. 2. Continue working on all exercises taught to you in the hospital. Your goals should be to increase bending of your knee to 90 degrees and beyond and to fully straighten your knee. B. You may progress at your own pace from walking with a walker or crutches to a cane; then to no assistive devices. C. Make walking a part of your daily routine. Be up as much as comfortable with rest periods throughout the day. Rest with leg elevation is very important. Use the ice wrap frequently for the first 3-4 weeks. D. There are no restrictions on activities. You may ride in a car, shop, participate in wire preparation worker and all social activities. E. Wear the long elastic stockings (JUDY hose) 20 hours a day for 2 weeks after surgery. They can be removed several times a day for laundering and for a bath. F. You may shower, no tub baths until cleared by your doctor. SPECIAL CARE INSTRUCTIONS: VERY IMPORTANT TO READ AND REVIEW A. There are a few signs you need to watch for after you are home. Call [facility] [place] if you notice any of the followin. Increased severe knee pain. Some pain is expected especially when you exercise. 2. Increased swelling in your leg or knee; pain or swelling of the calf muscle in either lower leg. 3. Any fluid drainage from the incision. 4. Shortness of breath or chest pain. B. Please call [facility] at if you have any concerns or questions about your operation or recovery. The doctor or his nurse will return your call promptly. C. You must take antibiotics before dental work, bladder, bowel or other surgery. Your doctor will provide you with a permanent care to carry describing this precaution. IMPORTANT: * REMEMBER TO TAKE ASPIRIN, 81 MG, TWICE DAILY FOR 4 WEEKS UNLESS OTHERWISE DIRECTED. THIS IS YOUR BLOOD THINNER. * HIGH RISK PATIENTS MAY BE PRESCRIBED A STRONGER BLOOD THINNER. THIS WILL BE PROVIDED AT DISCHARGE. * CALL IF INCREASED PAIN, REDNESS, DRAINAGE OR FEVER GREATER THAT 101. * WEAR JUDY HOSE 20 HOURS PER DAY FOR 2 WEEKS. * YOU MAY HAVE A LARGE BAND-AID LIKE DRESSING (SILVERON). THIS WILL REMAIN ON YOUR INCISION FOR 7 DAYS, THEN CAN BE REMOVED. IF INCISION IS LEAKING THROUGH DRESSING, CALL THE OFFICE . FOLLOW UP VISIT: If appointment is not already scheduled: Please call [facility] [place] to make a follow-up appointment for 2 weeks after your surgery at . YOU HAVE A WOUND VAC OVER YOUR INCISION, REMOVE AND DISCARD ALL PARTS 1 WEEK POST OP, REPLACE WITH STERILE DRESSINGS DAILY UNTIL FOLLOW UP IN OFFICE. Current Hospital Diet Patient's current hospital diet: Regular Diet Discharge Diet Recommended Diet: Regular Diet Procedures Procedures Performed: Left total knee arthroplasty-cemented,lateral release and increased difficulty due to morbid obesity,application superficial wound vac Pending Studies Studies pending at discharge: no Laboratory Results Hemoglobin A1c Test 04/23/17 11:14 Range/Units Estimated Average Glucose 126 mg/dl Hemoglobin A1c 6.0 H 4.5-5.6 % Medical Emergencies . Who to Call and When: Medical Emergencies: If at any time you feel your situation is an emergency, please call 911 immediately. . Non-Emergent Contact Non-Emergency issues call your: Primary Care Provider . . "Provider Documentation" section prepared by Judson Cook. . Core Measure Problem Core Measures: VTE VTE Core Measures Date of VTE Diagnosis: May 18, 2017 Time of VTE Diagnosis: 10:22 Reason no anticoag overlap I/P: Treatment provided - N/A Reason no anticoag overlap @DC: Treatment provided - N/A [place] Drug Monitoring Program Search Results: patient reviewed within database, no issues identified
[2017-05-18 10:32] VITALS: BP 131/77; PULSE 77; TEMP 36.9; O2SAT 95
== END 2017-05-18 13:03 | DRG 470 ==
LOC: C.ACU 07:14 → C.3E 09:31 → ENRESERV 12:42
PROVIDERS: ADMIT Orthopaedic Surgery Sports Medicine; ATTEND Orthopaedic Surgery Sports Medicine
PROC: 0SRD0J9 Replacement of Left Knee Joint with Synthetic Substitute, Cemented, Open Approach (ICD-10-PCS; principal; 2017-05-15 09:20)
DX: M17.12 Unilateral primary osteoarthritis, left knee (principal); Z68.41 Body mass index [BMI] 40.0-44.9, adult; I10 Essential (primary) hypertension; E78.00 Pure hypercholesterolemia, unspecified; J45.909 Unspecified asthma, uncomplicated; G47.30 Sleep apnea, unspecified; K21.9 Gastro-esophageal reflux disease without esophagitis; E66.01 Morbid (severe) obesity due to excess calories; Z88.5 Allergy status to narcotic agent

== ENCOUNTER → 2017-07-22 | Outpatient (CLI) | payer OTHER ==
[~2017-07-22] MED LIST changes: +ACET-1047 PO; -ACETAMINOPHEN 500 MG TAB PO SCH; +AMB5 PO; -BUPIVACAINE 0.25% 30 ML VIAL ONE; -BUPIVACAINE 0.5 % 5 MG/1 ML PF 10ML VIAL ONE; -CEFAZOLIN 2000MG IV PUSH 15 ML IV SCH; +CLB200 PO; +CLC100 PO; -CeleBREX 200 MG CAP PO SCH; -DEXAMETHASONE 4 MG TAB PO SCH; -FAMOTIDINE 20 MG TAB PO SCH; -GABAPENTIN 300 MG CAP PO SCH; +HYDR-5688 PO; -LACTATED RINGER'S 1000ML 1,000 ML IV SCH; -METOCLOPRAMIDE HCL 10 MG TAB PO SCH; +MULT-890 PO; +ONDA-170 PO; -ROPIVACAINE 5MG/ML 30 ML 150 MG, BUPIVACAINE 0.5% MPF INJ 30 ML, EpINEphrine HCL INJ 0.... INFIL SCH; -TRANEXAMIC ACID INJ 1,000 MG in SYRINGE 0 ML IV SCH; +XRL10 PO
[2017-07-22 13:07] LABS: BASO ABS # 0.04 K/uL (0-0.2); EOS % 10.4 %; EOS ABS # 0.41 K/uL (0-0.5); HEMOGLOBIN 11.8 g/dL (12.0-16.0); LYMPH % 23.5 %; LYMPH ABS # 0.93 K/uL (1.2-3.4); MEAN CELL VOLUME 85.5 fL (80-100); MEAN CORPUSCULAR HGB CONC 32.8 g/dl (32-36); MEAN PLATELET VOLUME 9.9 fL (7.4-10.4); MONO % 9.3 %; MONO ABS # 0.37 K/uL (0.11-0.59); NEUT % 55.8 %; NEUT ABS # 2.21 K/uL (1.4-6.5); PLATELET COUNT 296 K/uL (130-400); RED CELL DISTRIBUTION WIDTH CV 14.6 % (11.5-14.5); RED CELL DISTRIBUTION WIDTH SD 45.9 fL (36.4-46.3); WHITE BLOOD COUNT 3.96 K/uL (4.8-10.8)
[2017-07-22 14:01] LABS: ALBUMIN 3.9 gm/dl (3.4-5.0); ALKALINE PHOSPHATASE 110 U/L (45-117); ALT/SGPT 17 U/L (12-78); AST/SGOT 16 U/L (15-37); BLOOD UREA NITROGEN 12 mg/dl (7-18); CALCIUM 9.2 mg/dl (8.5-10.1); CARBON DIOXIDE 29 mmol/L (21-32); CHOLESTEROL 214 mg/dl (0-200); CREATININE 0.72 mg/dl (0.60-1.20); GLUCOSE 108 mg/dl (70-99); POTASSIUM 4.1 mmol/L (3.5-5.1); SODIUM 137 mmol/L (136-145); TOTAL PROTEIN 7.5 gm/dl (6.4-8.2)
[2017-07-22 14:02] LABS: LDL CHOLESTEROL CALCULATED 141 mg/dl
== END | disposition home or self-care (01) ==
LOC: C.LABSPEC 12:18
PROVIDERS: ATTEND Family Medicine
DX: I10 Essential (primary) hypertension (principal); E78.2 Mixed hyperlipidemia; K21.9 Gastro-esophageal reflux disease without esophagitis

== ENCOUNTER 2022-11-09 12:09 | Inpatient (IN) ==
--- NOTE | 2022-11-09 12:49 | Emergency Department Note ---
History of Present Illness General Chief complaint: Confusion Stated complaint: ABNORMAL SPEECH, CONFUSION, Time Seen by Provider: 11/09/22 12:17 History of Present Illness 72-year-old female presents emergency department with a 2-day history of a slight headache and mild confusion and some difficulty finding words. States that she had a headache on Saturday she was trying to text on Saturday could not find certain words and did not remember how to text. Over the past 48 hours now she continues to have some difficulty finding words and sometimes her speech seems to be off. Patient is in the upper extremities or lower extremities. Patient denies any difficulty walking. Patient is not currently on blood thinners. Patient did not hit her head. There is been no recent infections. Patient was concerned due to difficulty in finding words at times Home Medications Medication Instructions Recorded Confirmed Type acetaminophen 500 mg tablet 500 mg PO Q6H PRN Pain 2 days #20 08/20/17 09/27/22 History (Tylenol Extra Strength) tabs albuterol sulfate 90 mcg/actuation 1 puff inhalation Q6H PRN SOB 10/06/18 09/27/22 History aerosol inhaler biotin 1,000 mcg chewable tablet 2,000 mcg PO DAILY 10/19/21 09/27/22 History lovastatin 20 mg tablet 20 mg PO DAILY #90 tabs 06/02/22 09/27/22 Rx albuterol sulfate 2.5 mg/3 mL 2.5 mg (3 mL) inhalation QID PRN 06/05/22 09/27/22 Rx (0.083 %) solution for nebulization shortness of breath or wheezing #1,080 mL apple cider vinegar 500 mg tablet 500 mg PO DAILY #90 tabs 09/27/22 09/27/22 Rx fexofenadine 180 mg tablet 180 mg PO DAILY #30 tabs 09/27/22 09/27/22 Rx (Chinyere Allergy) fluticasone 500 mcg-salmeterol 50 1 inh inhalation BID #3 ea 09/27/22 09/27/22 Rx mcg/dose blistr powdr for inhalation (Advair Diskus) omeprazole 20 mg capsule,delayed 20 mg PO DAILY #90 caps 09/27/22 09/27/22 Rx release lisinopril 5 mg tablet 5 mg PO DAILY #90 tabs 10/22/22 Rx Allergies Allergy/AdvReac Type Severity Reaction Status Date / Time atorvastatin AdvReac Unknown LEG PAINS Verified 09/27/22 10:20 codeine AdvReac Unknown GI UPSET Verified 09/27/22 10:20 pravastatin AdvReac Unknown LEG PAINS Verified 09/27/22 10:20 simvastatin AdvReac Unknown LEG PAINS Verified 09/27/22 10:20 cephalexin [From Keflex] AdvReac convulsions Verified 09/27/22 10:20 Unclassified Drugs Allergy Unknown SEASONAL Uncoded 09/27/22 10:20 ALLERGIES - COUGHING, SNEEZING, TRIGGERS FOR ASTHMA Past Med/Surg History Medical History Acid reflux Asthma Benign paroxysmal positional vertigo HTN (hypertension) Hyperlipidemia Mycobacterium avium complex HX OF Osteoarthritis Pneumonia due to COVID-19 virus Sleep apnea NO DEVICE Surgical History Cataract LEFT H/O dilation and curettage H/O: section History of bunionectomy History of hysterectomy REMOVED LEFT OVARY History of open reduction and internal fixation (ORIF) procedure LEFT ANKLE Hx of cardiac cath NEGATIVE FINDING Hx of colonoscopy 08/30/2017 Hx of temporomandibular joint disorder REPAIR OF TMJ Hx of total knee replacement LEFT S/P sinus surgery S/P tonsillectomy Family History Father Myocardial infarction Skin cancer Lung cancer Heart disease Mother Heart disease Hypertension Alzheimer disease Brother Hypertension Aunt Colorectal cancer Denies family history of Ovarian cancer Prostate cancer Breast cancer Social History Smoking Status: Never smoker Second Hand Exposure: Yes (FATHER); Do You Dip or Chew Tobacco: No; Hx Alcohol Use: No Hx Substance Use: No Preferred Language: Tongan Communication Ability: Effective Visual Impairment: Limited Hearing Ability: Normal Center Line Cutter Operator Required: No Beliefs That Will Affect Care: None marital status: Current Living Situation: Spouse current occupational status: retired How many Children do You have: 2 Feels Safe at Home: Yes Childhood Exposure to Second-Hand Smoke: Yes (Father ) Diet: regular Diet Comment: Regular diet caffeine: Yes (Coffee ) during the past year weight has: decreased > 10 lbs Dental Care, Regularly: Yes Physical Activity Frequency: 3-4 Times per Week Seatbelt Use: always Sunscreen Use: No Do you think of yourself as: straight/heterosexual Assistive Devices: Denture - Lower and Glasses Review of Systems A total of 10 systems reviewed and were otherwise negative Neurologic: + headache(s), + abnormal speech and + confusion Physical Exam Vital Signs Vital Signs - 24 hr 11/09/22 12:11 11/09/22 13:10 Temperature 36.6 C Temperature Source Temporal Artery Scan Pulse Rate 71 68 Respiratory Rate 20 Blood Pressure 218/91 H Blood Pressure Mean 133 Pulse Oximetry 99 Oxygen Delivery Method Room Air Sepsis Recent Fever Within 48 Hours No Sepsis New/Unexplained Change in Mental Status N/A Sepsis Action Taken by Nursing No Action Required GENERAL: Patient is awake alert in no acute distress patient is resting comfortably and showing no signs of anxiety EYES: The conjunctivae are clear. The pupils are round and reactive. EARS, NOSE, MOUTH AND THROAT: The nose is without any evidence of any deformity. Mucous membranes are moist. Tongue is midline. NECK: The neck is nontender and supple. RESPIRATORY: Normal respiratory effort is noted there is no evidence of wheezing rhonchi or rales CARDIOVASCULAR: Regular rate and rhythm noted there no murmurs rubs or gallops normal S1 normal S2. GASTROINTESTINAL: The abdomen is soft. Abdomen is nontender. BACK: No midline tenderness or or step-off noted range of motion in flexion extension as well as rotation no signs of muscle spasm noted MUSCULOSKELETAL/EXTREMITIES: There is no evidence of gross deformity full range of motion is noted in the hips and shoulders. SKIN: There is no obvious evidence of any rash. There are no petechiae, pallor or cyanosis noted. NEUROLOGIC: Patient is awake alert and oriented x3 strength is symmetric; NIH 0; GCS of 15, normal speech, normal strength in the upper and lower extremities Course Reevaluation(s) Reevaluation #1: Patient resting in no distress on repeat examination NIH of 0 Time: 15:05 Consultations Consultation #1: Case was discussed with the [facility] hospitalist for admission. Time: 15:05 Administered Medications Discontinued Medications Ioversol (Ioversol 350 Mg 125ml Prefilled Syringe) 118 ml IV ONCE ONE Stop: 11/09/22 13:41 Last Admin: 11/09/22 13:40 Dose: 118 ml Documented By: TANIYA Critical Care Time Critical Care Time: Yes Total Critical Care Time: 30 I have personally spent greater than 30 minutes of critical care time in the direct management of this patient. This includes bedside care, interpretation of diagnostic studies, and testing, discussion with consultants, patient, and family members, and other required patient management activities. These minutes are in excess of all separately billable procedures. Medical Decision Making Medical Records Attestation: I reviewed the patient's medical records. Home Medications Current Medication List: was personally reviewed by me Laboratory Data Attestation: I reviewed the patient's lab results. Labs interpreted by me are unremarkable 11/09/22 12:23 11/09/22 12: Lab Results 11/09/22 11/09/22 11/09/22 Range/Units 12:23 12: 12:23 WBC 6.20 (4.8-10.8) K/ul RBC 4.48 (4.20-5.40) M/uL Hgb 12.8 (12.0-16.0) g/dl Hct 39.1 (37.0-47.0) % MCV 87.3 (80.0-100.0) fL MCH 28.6 (25.0-34.0) pg MCHC 32.7 (32.0-36.0) g/dL RDW Std Deviation 42.2 (36.4-46.3) fL RDW Coeff of Kaylny 13.2 (11.5-14.5) % Plt Count 275 (130-400) K/uL MPV 10.3 (9.4-12.4) fL Immature Gran % (Auto) 0.3 % Neut % (Auto) 70.1 % Lymph % (Auto) 20.2 % Charlotte % (Auto) 6.1 % Eos % (Auto) 2.7 % Baso % (Auto) 0.6 % Neut # (Auto) 4.34 (1.40-6.50) K/uL Lymph # (Auto) 1.25 (1.2-3.4) K/uL Charlotte # (Auto) 0.38 (0.11-0.59) K/uL Eos # (Auto) 0.17 (0-0.50) K/uL Baso # (Auto) 0.04 (0-0.2) K/uL Immature Gran # (Auto) 0.02 (0.01-0.20) K/uL PT 9.8 (9.0-12.0) Seconds INR 0.9 (0.9-1.1) APTT 25.9 (21.0-31.0) Seconds PTT Ratio 0.9 Sodium 140 (136-145) mmol/L Potassium 3.8 (3.5-5.1) mmol/L Chloride 103 (98-107) mmol/L Carbon Dioxide 29 (21-32) mmol/L Anion Gap 8 (3-11) BUN 9 (6-23) mg/dl Creatinine 0.73 (0.6-1.2) mg/dl Est Cr Clr Drug Dosing Not Reportable Est GFR ( Amer) 96.0 ml/min Est GFR (Non-Af Amer) 82.9 ml/min BUN/Creatinine Ratio 12.3 (10-20) Glucose 128 H (70-99(Fasting)) mg/dl POC Glucose (70-99) mg/dl Calcium 9.7 (8.6-10.3) mg/dl Magnesium 2.0 (1.7-2.4) mg/dl Total Bilirubin 0.5 (0.2-1.0) mg/dl AST 19 (13-39) U/L ALT 10 (7-52) U/L Alkaline Phosphatase 122 H (34-104) U/L Troponin I High Sens 6.4 (0-14) pg/ml Total Protein 7.5 (6.0-8.3) gm/dl Albumin 4.5 (3.4-5.0) gm/dl Globulin 3.0 (2.5-4.0) gm/dl Albumin/Globulin Ratio 1.5 (0.9-2) 11/09/22 Range/Units 12:30 WBC (4.8-10.8) K/ul RBC (4.20-5.40) M/uL Hgb (12.0-16.0) g/dl Hct (37.0-47.0) % MCV (80.0-100.0) fL MCH (25.0-34.0) pg MCHC (32.0-36.0) g/dL RDW Std Deviation (36.4-46.3) fL RDW Coeff of Kaylyn (11.5-14.5) % Plt Count (130-400) K/uL MPV (9.4-12.4) fL Immature Gran % (Auto) % Neut % (Auto) % Lymph % (Auto) % Charlotte % (Auto) % Eos % (Auto) % Baso % (Auto) % Neut # (Auto) (1.40-6.50) K/uL Lymph # (Auto) (1.2-3.4) K/uL Charlotte # (Auto) (0.11-0.59) K/uL Eos # (Auto) (0-0.50) K/uL Baso # (Auto) (0-0.2) K/uL Immature Gran # (Auto) (0.01-0.20) K/uL PT (9.0-12.0) Seconds INR (0.9-1.1) APTT (21.0-31.0) Seconds PTT Ratio Sodium (136-145) mmol/L Potassium (3.5-5.1) mmol/L Chloride (98-107) mmol/L Carbon Dioxide (21-32) mmol/L Anion Gap (3-11) BUN (6-23) mg/dl Creatinine (0.6-1.2) mg/dl Est Cr Clr Drug Dosing Est GFR ( Amer) ml/min Est GFR (Non-Af Amer) ml/min BUN/Creatinine Ratio (10-20) Glucose (70-99(Fasting)) mg/dl POC Glucose 125 H (70-99) mg/dl Calcium (8.6-10.3) mg/dl Magnesium (1.7-2.4) mg/dl Total Bilirubin (0.2-1.0) mg/dl AST (13-39) U/L ALT (7-52) U/L Alkaline Phosphatase (34-104) U/L Troponin I High Sens (0-14) pg/ml Total Protein (6.0-8.3) gm/dl Albumin (3.4-5.0) gm/dl Globulin (2.5-4.0) gm/dl Albumin/Globulin Ratio (0.9-2) Imaging Data Attestation: I personally reviewed and interpreted this imaging study as follows: My Impression: Chest x-ray interpreted by me negative for infiltrate CT of the brain and per my interpretation negative for intracranial hemorrhage Radiologist's Impression: Head CT 11/09/22 12:18 CT head/brain wo con CLINICAL HISTORY: 72 years-old Female with neuro deficit, acute stroke suspected. Acute stroke like symptoms TECHNIQUE: Multiple axial CT images of the head were obtained without contrast. A dose lowering technique was utilized adhering to the principles of ALARA. COMPARISON: CTA head of same day FINDINGS: No acute intracranial hemorrhage, midline shift, intracranial mass, hydrocephalus, territorial ischemia or abnormal extra-axial collection. Mild involutional changes. The calvarium is intact. Moderate size right mastoid effusion. Mild mucosal thickening of the paranasal sinuses. Anterior maxillary ORIF changes. Prior bilateral lens repair. IMPRESSION: No acute intracranial abnormality. ACT 112: Negative or not required by law. The above report was generated using voice recognition software. It may contain grammatical, syntax or spelling errors. Electronically signed by: Keron Mock M.D. 11/09/2022 2:36 PM Head CTA 11/09/22 12:18 CTA ANGIOGRAPHY OF THE HEAD CLINICAL HISTORY: neuro deficit, acute stroke suspected COMPARISON STUDY: Sinus CT July 17, 2011. TECHNIQUE: Helical axial images of the head were obtained following uneventful intravenous administration of 118 cc of Optiray. Sagittal and coronal reconstructions were viewed as well as maximal intensity projections on an independent 3-D workstation. Automated exposure control was utilized for the study. A dose lowering technique was utilized adhering to the principles of ALARA. CT DOSE: 980.34 mGy.cm FINDINGS: No acute intracranial hemorrhage is identified on this contrast enhanced exam. There is no intracranial aneurysm. There is apparent short segment occlusion with immediate reconstitution of the distal left M1 segment on axial image 100 of 135. Severe stenosis could appear similar however the vessel appears to be occluded for a short segment. Otherwise, no additional sites of intracranial occlusion are present. There is mild plaque within the bilateral cavernous carotids without severe stenosis. There is no occlusion within the posterior circulation. There is no dissection within the intracranial vessels. IMPRESSION: 1. Suspected short segment occlusion with immediate reconstitution of the distal left M1 segment. A small thrombus cannot be excluded and findings could be correlated with acute left MCA territory infarct. Severe stenosis could appear similar although is considered less likely. 2. No additional sites of vessel occlusion. No intracranial aneurysm. ACT 112: Negative or not required by law. Electronically signed by: Too Vidal M.D. 11/09/2022 2:38 PM Neck CTA 11/09/22 12:18 NECK CTA HISTORY: neuro deficit, acute stroke suspected TECHNIQUE: Multiaxial CT images of the neck were performed following the intravenous administration of contrast to evaluate the major cervical vessels. 3 D/MIP images were also obtained. Sagittal and coronal reformats were reviewed. All measurements were calculated based on NASCET criteria. A dose lowering technique was utilized adhering to the principles of ALARA. COMPARISON STUDY: None. FINDINGS: The aortic arch and proximal great vessels are widely patent. There is no significant stenosis, occlusion, or dissection identified within the bilateral common carotid, internal carotid, or vertebral arteries. Mild calcified plaque within the bilateral carotid bifurcations most pronounced on the left. Postoperative changes seen within the mandible/maxilla. IMPRESSION: No significant stenosis, occlusion, or dissection identified within the carotid or vertebral arteries. ACT 112: Negative or not required by law. Electronically signed by: Mann Frankel M.D. 11/09/2022 2:14 PM Chest X-Ray 11/09/22 12:33 XR chest 1V portable HISTORY: neuro deficit, acute stroke suspected COMPARISON: Chest 07/01/2018. FINDINGS: The cardiac silhouette remains mildly enlarged. Small left basilar linear densities persist. This favors scarring or subsegmental atelectasis. Otherwise, the lungs are clear. No pleural effusions. No pneumothorax. IMPRESSION: No significant change compared to the prior study. No acute process. ACT 112: Negative or not required by law. Electronically signed by: Mann Frankel M.D. 11/09/2022 1:37 PM ECG Data Attestation: I personally reviewed and interpreted this ECG as follows: Additional Comments: EKG interpreted by me normal sinus rhythm rate of 68 normal intervals normal axis no obvious ST segment elevation or depression Telemetry ordered by me, normal sinus rhythm rate of 68 MDM Narrative Medical decision making differential diagnosis includes CVA, TIA, intracranial hemorrhage, hypertensive crisis, transient global amnesia, electrolyte abnormality Plan is to check CTs, EKG, chest x-ray Patient is not a tPA candidate currently her symptoms are greater than 48 hours now Independent history was provided to me by the patient's at bedside Patient's symptoms suggestive of stroke, patient's greater than 48 hours of symptom onset. Patient's CT angio is distal likely no thrombectomy required, patient's not a tPA candidate at this time. Patient will be admitted for further evaluation and treatment of stroke Impression & Plan HTN (hypertension), Acute CVA (cerebrovascular accident) Discharge Plan Visit Data Chief Complaint: Confusion Stated Complaint: ABNORMAL SPEECH, CONFUSION, ED Provider: Danial Deras Discharge Problem: HTN (hypertension), Acute CVA (cerebrovascular accident) Patient Disposition: Admitted As Inpatient Forms Stand Alone Forms: [facility] Prescriptions Prescriptions: No Action acetaminophen [Tylenol Extra Strength] 500 mg Tablet 500 mg PO Q6H PRN (Reason: Pain) 2 Days Qty: 20 lovastatin 20 mg tablet 20 mg PO DAILY Qty: 90 1RF albuterol sulfate 2.5 mg /3 mL (0.083 %) solution for nebulization 2.5 mg inhalation QID PRN (Reason: shortness of breath or wheezing) Qty: 1080 1RF Rx Instructions: 90 day supply lisinopril 5 mg tablet 5 mg PO DAILY Qty: 90 3RF biotin 1,000 mcg tablet,chewable 2,000 mcg PO DAILY omeprazole 20 mg capsule,delayed release(DR/EC) 20 mg PO DAILY Qty: 90 3RF fexofenadine [Chinyere Allergy] 180 mg tablet 180 mg PO DAILY Qty: 30 0RF apple cider vinegar 500 mg tablet 500 mg PO DAILY Qty: 90 0RF fluticasone propion-salmeterol [Advair Diskus] 500-50 mcg/dose blister with device 1 inh inhalation BID Qty: 3 1RF albuterol sulfate 90 mcg/actuation Hfa Aerosol Inhaler 1 puff INHALATION Q6H PRN (Reason: SOB) Referrals Referrals: Shelby Colon DO [Primary Care Provider] -
[2022-11-09 12:59] LABS: Basophils # (auto) 0.04 K/uL (0-0.2); Basophils % (auto) 0.6 %; Eosinophils # (auto) 0.17 K/uL (0-0.50); Eosinophils % (auto) 2.7 %; Hematocrit (blood only) 39.1 % (37.0-47.0); Hemoglobin 12.8 g/dl (12.0-16.0); Immature Granulocytes # (auto) 0.02 K/uL (0.01-0.20); Immature Granulocytes % (auto) 0.3 %; Lymphocytes # (auto) 1.25 K/uL (1.2-3.4); Lymphocytes % (auto) 20.2 %; Mean Corpuscular Hemoglobin 28.6 pg (25.0-34.0); Mean Corpuscular Hgb Conc 32.7 g/dL (32.0-36.0); Mean Corpuscular Volume 87.3 fL (80.0-100.0); Mean Platelet Volume 10.3 fL (9.4-12.4); Monocytes # (auto) 0.38 K/uL (0.11-0.59); Monocytes % (auto) 6.1 %; Neutrophils # (auto) 4.34 K/uL (1.40-6.50); Neutrophils % (auto) 70.1 %; Platelet Count 275 K/uL (130-400); RDW Coefficient of Variation 13.2 % (11.5-14.5); RDW Standard Deviation 42.2 fL (36.4-46.3); Red Blood Count 4.48 M/uL (4.20-5.40)
[2022-11-09 13:14] LABS: Alanine Aminotransferase 10 U/L (7-52); Albumin Globulin Ratio 1.5 (0.9-2); Albumin Level 4.5 gm/dl (3.4-5.0); Alkaline Phosphatase 122 U/L (34-104); Anion Gap 8 (3-11); Aspartate Aminotransferase 19 U/L (13-39); BUN Creatinine Ratio 12.3 (10-20); Bilirubin,Total 0.5 mg/dl (0.2-1.0); Blood Urea Nitrogen 9 mg/dl (6-23); Calcium 9.7 mg/dl (8.6-10.3); Carbon Dioxide 29 mmol/L (21-32); Chloride 103 mmol/L (98-107); Est GFR (Non-African American) 82.9 ml/min; Glucose 128 mg/dl (70-99(Fasting)); Potassium 3.8 mmol/L (3.5-5.1); Sodium 140 mmol/L (136-145); Total Protein 7.5 gm/dl (6.0-8.3)
[2022-11-09 13:20] LABS: Troponin I High Sensitivity 6.4 pg/ml (0-14)
[2022-11-09 13:30] LABS: INR 0.9 (0.9-1.1); Partial Thromboplastin Ratio 0.9; Partial Thromboplastin Time 25.9 Seconds (21.0-31.0); Prothrombin Time 9.8 Seconds (9.0-12.0)
--- NOTE | 2022-11-09 13:39 | XRay Report ---
XR chest 1V portable HISTORY: neuro deficit, acute stroke suspected COMPARISON: Chest 07/01/2018. FINDINGS: The cardiac silhouette remains mildly enlarged. Small left basilar linear densities persist . This favors scarring or subsegmental atelectasis. Otherwise, the lungs are clear. No pleural effusi ons. No pneumothorax. IMPRESSION: No significant change compared to the prior study. No acute process. ACT 112: Negative or not required by law. Electronically signed by: Mann Frankel M.D. 11/09/2022 1:37 PM
[2022-11-09] MEDS ORDERED: IOVERSOL 350 MG 125mL Prefilled Syringe IV ONE (13:40)
--- NOTE | 2022-11-09 14:17 | CT Scan Report ---
NECK CTA HISTORY: neuro deficit, acute stroke suspected TECHNIQUE: Multiaxial CT images of the neck were performed following the intravenous administration o f contrast to evaluate the major cervical vessels. 3D/MIP images were also obtained. Sagittal and cor onal reformats were reviewed. All measurements were calculated based on NASCET criteria. A dose low ering technique was utilized adhering to the principles of ALARA. COMPARISON STUDY: None. FINDINGS: The aortic arch and proximal great vessels are widely patent. There is no significant sten osis, occlusion, or dissection identified within the bilateral common carotid, internal carotid, or v ertebral arteries. Mild calcified plaque within the bilateral carotid bifurcations most pronounced on the left. Postoperative changes seen within the mandible/maxilla. IMPRESSION: No significant stenosis, occlusion, or dissection identified within the carotid or vertebral arteries . ACT 112: Negative or not required by law. Electronically signed by: Mann Frankel M.D. 11/09/2022 2:14 PM
--- NOTE | 2022-11-09 14:39 | CT Scan Report ---
CT head/brain wo con CLINICAL HISTORY: 72 years-old Female with neuro deficit, acute stroke suspected. Acute stroke like symptoms TECHNIQUE: Multiple axial CT images of the head were obtained without contrast. A dose lowering tech nique was utilized adhering to the principles of ALARA. COMPARISON: CTA head of same day FINDINGS: No acute intracranial hemorrhage, midline shift, intracranial mass, hydrocephalus, territorial ischem ia or abnormal extra-axial collection. Mild involutional changes. The calvarium is intact. Moderate size right mastoid effusion. Mild mucosal thickening of the parana rj sinuses. Anterior maxillary ORIF changes. Prior bilateral lens repair. IMPRESSION: No acute intracranial abnormality. ACT 112: Negative or not required by law. The above report was generated using voice recognition software. It may contain grammatical, syntax o r spelling errors. Electronically signed by: Keron Mock M.D. 11/09/2022 2:36 PM
--- NOTE | 2022-11-09 14:40 | CT Scan Report ---
CTA ANGIOGRAPHY OF THE HEAD CLINICAL HISTORY: neuro deficit, acute stroke suspected COMPARISON STUDY: Sinus CT July 17, 2011. TECHNIQUE: Helical axial images of the head were obtained following uneventful intravenous administr ation of 118 cc of Optiray. Sagittal and coronal reconstructions were viewed as well as maximal inten sity projections on an independent 3-D workstation. Automated exposure control was utilized for the study. A dose lowering technique was utilized adhering to the principles of ALARA. CT DOSE: 980.34 mGy.cm FINDINGS: No acute intracranial hemorrhage is identified on this contrast enhanced exam. There is no intracranial aneurysm. There is apparent short segment occlusion with immediate reconstitution of the distal left M1 segment on axial image 100 of 135. Severe stenosis could appear similar however the v essel appears to be occluded for a short segment. Otherwise, no additional sites of intracranial occl usion are present. There is mild plaque within the bilateral cavernous carotids without severe stenos is. There is no occlusion within the posterior circulation. There is no dissection within the intracr anial vessels. IMPRESSION: 1. Suspected short segment occlusion with immediate reconstitution of the distal left M1 segment. A s mall thrombus cannot be excluded and findings could be correlated with acute left MCA territory infar ct. Severe stenosis could appear similar although is considered less likely. 2. No additional sites of vessel occlusion. No intracranial aneurysm. ACT 112: Negative or not required by law. Electronically signed by: Too Vidal M.D. 11/09/2022 2:38 PM
--- NOTE | 2022-11-09 14:57 | History & Physical Report ---
Date of Service November 09, 2022 Assessment & Plan (1) Acute CVA (cerebrovascular accident): Plan: Acute CVA, M2 occlusion Onset of symptoms with expressive aphasia 2 days prior to admission, no symptoms yesterday, Ryan presents with focal expressive aphasia NIHSS 0, other than expressive aphasia no other neurologic symptoms. She does not have dysarthria, no receptive aphasia, and expressive word finding difficulty includes both speech/text/written word Given stuttering course and distant CTA:1. Suspected short segment occlusion with immediate reconstitution of the distal left M1 segment. A small thrombus cannot be excluded and findings could be correlated with acute left MCA territory infarct. Severe stenosis could appear similar although is considered less likely.2. No additional sites of vessel occlusion. No intracranial aneurysm. CThead: No acute findings EKG: NSR, no history of A-fib MRI pending Discussed with neurology. Agree with dual antiplatelet therapy for 3 weeks, then transition to Plavix monotherapy. Distal segment occlusion not amenable to thrombectomy, while outside the window for thrombolytics. Given initial symptoms approximately 48 hours ago will defer permissive hypertension parameters and treat to goal SBP 180/90. May defer formal consultation unless complicated course develops. Patient has history of hypertension on lisinopril. Is hypertensive on admission, lisinopril increased and adjunct amlodipine added Hyperlipidemia Intolerant to Lipitor, and 1 other statin Tolerate lovastatin 20 mg, increase to 40 mg Asthma No acute exacerbation Continue home inhalers DVT prophylaxis: Lovenox Disposition: PCU for IV blood pressure management CODE STATUS: DNR/DNI Diet: Heart healthy (2) HTN (hypertension): (3) Hyperlipidemia: (4) HTN (hypertension): (5) Asthma: (6) Acid reflux: History of Present Illness Primary Care Provider: Shelby Colon DO On Saturday 'something happened'. Was having acute word finding difficulty. No dysarthria. yetserday improved, but today was having difficulty finding the right words and 'cant make words to go right.' Had trouble texting and writing. Receptive language is normally. +expressive aphasia. No weakness, numbness, tingling +L sided heachache intermittently since saturday not currently present. +ttp. On was having some numbness/tingling behind he No chest pain or chest pressure No hx of stroke or clots no T2DM hx HTN, high today and over 200. no history of RI Hx JEN --> supposed to be on CPAP Asthma well controlled +severe myalgias on lipitor in the past. Tried one other statin, then was able to tolerate lovastatin. on lisinopril. took today. no other Headache, hypertension NIHSS 0 today Distal and resolved, not a candidate for thrombectomy Medical History: Reviewed Medications: Reviewed Surgical History: Reviewed Family history: Reviewed Allergies: Reviewed Social History: No tobacco. Code Status: DNR/DNI Allergies Allergy/AdvReac Type Severity Reaction Status Date / Time atorvastatin AdvReac Unknown LEG PAINS Verified 11/09/22 15:23 codeine AdvReac Unknown GI UPSET Verified 11/09/22 15:23 pravastatin AdvReac Unknown LEG PAINS Verified 11/09/22 15:23 simvastatin AdvReac Unknown LEG PAINS Verified 11/09/22 15:23 cephalexin [From Keflex] AdvReac convulsions Verified 11/09/22 15:23 Unclassified Drugs Allergy Unknown SEASONAL Uncoded 11/09/22 15:23 ALLERGIES - COUGHING, SNEEZING, TRIGGERS FOR ASTHMA Home Medications Medication Instructions Recorded Confirmed Type acetaminophen 500 mg tablet 500 mg PO Q6H PRN Pain 2 days #20 08/20/17 09/27/22 History (Tylenol Extra Strength) tabs albuterol sulfate 90 mcg/actuation 1 puff inhalation Q6H PRN SOB 10/06/18 09/27/22 History aerosol inhaler fexofenadine 180 mg tablet 180 mg PO DAILY #30 tabs 09/27/22 09/27/22 Rx ([facility]) fluticasone 500 mcg-salmeterol 50 1 inh inhalation BID #3 ea 09/27/22 09/27/22 Rx mcg/dose blistr powdr for inhalation (Advair Diskus) lisinopril 5 mg tablet 5 mg PO DAILY #90 tabs 10/22/22 Rx lovastatin 20 mg tablet 20 mg PO HS 11/09/22 11/09/22 History omeprazole 20 mg capsule,delayed 20 mg PO QPM 11/09/22 11/09/22 History release Past Med/Surg History Medical History Acid reflux Asthma Benign paroxysmal positional vertigo HTN (hypertension) Hyperlipidemia Mycobacterium avium complex HX OF Osteoarthritis Pneumonia due to COVID-19 virus Sleep apnea NO DEVICE Surgical History Cataract LEFT H/O dilation and curettage H/O: section History of bunionectomy History of hysterectomy REMOVED LEFT OVARY History of open reduction and internal fixation (ORIF) procedure LEFT ANKLE Hx of cardiac cath NEGATIVE FINDING Hx of colonoscopy 08/30/2017 Hx of temporomandibular joint disorder REPAIR OF TMJ Hx of total knee replacement LEFT S/P sinus surgery S/P tonsillectomy Family History Father Myocardial infarction Skin cancer Lung cancer Heart disease Mother Heart disease Hypertension Alzheimer disease Brother Hypertension Aunt Colorectal cancer Denies family history of Ovarian cancer Prostate cancer Breast cancer Social History Smoking Status: Never smoker Second Hand Exposure: Yes (FATHER); Do You Dip or Chew Tobacco: No; Hx Alcohol Use: No Hx Substance Use: No Preferred Language: Citizen Of [place] Communication Ability: Effective Visual Impairment: Limited Hearing Ability: Normal Government Service Executive Required: No Beliefs That Will Affect Care: None marital status: Current Living Situation: Spouse current occupational status: retired How many Children do You have: 2 Feels Safe at Home: Yes Childhood Exposure to Second-Hand Smoke: Yes (Father ) Diet: regular Diet Comment: Regular diet caffeine: Yes (Coffee ) during the past year weight has: decreased > 10 lbs Dental Care, Regularly: Yes Physical Activity Frequency: 3-4 Times per Week Seatbelt Use: always Sunscreen Use: No Do you think of yourself as: straight/heterosexual Assistive Devices: Denture - Lower and Glasses Review of Systems Review of Systems: General: A&Ox3. NAD. Cooperative. HEENT: Atraumatic, normocephalic. Pulm: CTAB A&P. -wheezes, -rales, -rhonchi. Symmetrical chest rise. No increased work of breathing. No respiratory distress. Cardiac: RRR, -mrg. Radial pulses intact and symmetrical. Abdominal: Nontender, nondistended, soft. BS present. CRANIAL NERVES: II: Pupils equal and reactive, no relative afferent pupillary defect, no VF cuts III, IV, : EOM intact, no gaze preference or deviation, no nystagmus. V: normal sensation in V1, V2, and V3 segments bilaterally VII: no asymmetry, no nasolabial fold flattening VIII: normal hearing to speech IX, X: normal palatal elevation, no uvular deviation XI: 5/5 head turn and 5/5 shoulder shrug bilaterally XII: midline tongue protrusion MOTOR: RUE: 5/5 flight test supervisor strength, finger flexion/extension, interosseus LUE: 5/5 flight test supervisor strength, finger flexion/extension, interosseus RLE: 5/5 to hip flexion ankle dorsiflexion/plantarflexion LLE: 5/5 to hip flexion, ankle dorsiflexion/plantarflexion no clonus SENSORY: Normal to touch in upper and lower extremities without deficit or asymmetry Results & Data Results & Data Vital Signs (Past 12 Hours) Vital Signs Temp Pulse Resp BP Pulse Ox O2 Del Method 11/09/22 13:10 68 11/09/22 12:11 36.6 C 71 20 218/91 H 99 Room Air PG Care Time/CCT Total # of Minutes Spent Total Time Spent with Patient: Total time spent is greater than 50% in coordination of care (as documented) at patient's floor/unit and/or counseling patient: Coding Level of Care Code 87176 INT INP/OBS CARE 3/75MIN Diagnoses Acute CVA (cerebrovascular accident) I63.9 HTN (hypertension) I10 Hyperlipidemia E78.5 Asthma J45.909 Acid reflux K21.9
[2022-11-09] MEDS ORDERED: amLODIPine BESYLATE 5 MG TAB PO ONE (15:23)
[2022-11-09] MEDS ORDERED: LABETALOL HCL IV 5 MG/ML 20ML IV STA (15:23)
[2022-11-09] MEDS ORDERED: CLOPIDOGREL BISULFATE 300 MG TAB PO STA (15:27)
[2022-11-09] MEDS ORDERED: LABETALOL HCL IV 5 MG/ML 20ML IV PRN (15:27)
[2022-11-09] MEDS ORDERED: LORazepam 1 MG TAB PO PRN (15:33)
[2022-11-09] MEDS ORDERED: ACETAMINOPHEN 500 MG TAB PO PRN (16:44)
[2022-11-09] MEDS ORDERED: PHARMACIST DISCHARGE MED REC CONSULT PRN (16:44)
[2022-11-09] MEDS ORDERED: ALBUTEROL HFA 8 GM INHALER INH PRN (16:44)
--- NOTE | 2022-11-09 19:44 | Magnetic Resonance Report ---
Exam(s): MRI HEAD Without Contrast EXAM: MR Head Without Intravenous Contrast CLINICAL HISTORY: Reason for exam: CVA/TIA, HTN. TECHNIQUE: Magnetic resonance images of the head/brain without intravenous contrast in multiple planes. COMPARISON: CT 11/09/22 FINDINGS: Brain: Patchy gyriform areas of restricted diffusion in the left parietal lobe and small focus in the left frontal lobe. Senescent changes with small vessel disease. Ventricles: No hydrocephalus. Bones/joints: Unremarkable. Sinuses: Mild debris in the right maxillary sinus. No acute sinusitis. Mastoid air cells: Right mastoid opacification. Orbits: Cataract surgery. IMPRESSION: Patchy gyriform areas of restricted diffusion in the left parietal lobe and small focus in the left frontal lobe. Finding suggest acute infarcts. Electronically signed by: Elvia Henson M.D. 11/09/22 19:43 PM
[2022-11-09] MEDS: FLUTICASONE/VILANTEROL 200/25MCG 14 PUFFS/INHALER INH SCH (20:16)
[2022-11-09] MEDS: PANTOprazole 40 MG TAB PO SCH (20:17)
[2022-11-09] MEDS: LOVASTATIN 20 MG TAB PO SCH (20:18)
[2022-11-09] MEDS: ASPIRIN 81 MG ECTAB PO SCH (20:18)
[2022-11-10 06:01] LABS: Basophils # (auto) 0.04 K/uL (0-0.2); Basophils % (auto) 0.8 %; Eosinophils # (auto) 0.33 K/uL (0-0.50); Eosinophils % (auto) 6.4 %; Hematocrit (blood only) 34.9 % (37.0-47.0); Hemoglobin 11.4 g/dl (12.0-16.0); Immature Granulocytes # (auto) 0.01 K/uL (0.01-0.20); Immature Granulocytes % (auto) 0.2 %; Lymphocytes # (auto) 1.31 K/uL (1.2-3.4); Lymphocytes % (auto) 25.5 %; Mean Corpuscular Hemoglobin 28.4 pg (25.0-34.0); Mean Corpuscular Hgb Conc 32.7 g/dL (32.0-36.0); Mean Corpuscular Volume 86.8 fL (80.0-100.0); Mean Platelet Volume 10.5 fL (9.4-12.4); Monocytes # (auto) 0.42 K/uL (0.11-0.59); Monocytes % (auto) 8.2 %; Neutrophils # (auto) 3.02 K/uL (1.40-6.50); Neutrophils % (auto) 58.9 %; Platelet Count 241 K/uL (130-400); RDW Coefficient of Variation 13.2 % (11.5-14.5); RDW Standard Deviation 41.8 fL (36.4-46.3); Red Blood Count 4.02 M/uL (4.20-5.40); White Blood Count 5.13 K/ul (4.8-10.8)
[2022-11-10 06:06] LABS: BUN Creatinine Ratio 15.1 (10-20); Calcium 9.1 mg/dl (8.6-10.3); Chol HDL Ratio 3.3 (0-5); Creatinine Clr Calc Pharmacy 66.4 ml/min; Est GFR (Non-African American) 82.9 ml/min; Potassium 3.8 mmol/L (3.5-5.1)
--- NOTE | 2022-11-10 08:10 | Hospitalist Progress Note ---
Date of Service November 10, 2022 Assessment & Plan (1) Acute CVA (cerebrovascular accident): (2) HTN (hypertension): (3) Hyperlipidemia: (4) Asthma: (5) Acid reflux: Plan #Acute CVA M2 occlusion Expressive aphasia includes speech/text/written word No dysarthria, no difficulty with comprehension NIHSS0 EKG NSR, no hx afib Per neuro: DAPT x3wks-->Plavix monotherapy, distal segmental occlusion not amenable to thrombectomy, outside window for thrombolytics Per speech therapy: will need continued services outpatient for aphasia, apraxia, and reading comprehension. Pt agreeable to home health. #HTN Delayed stroke presentation Treat to goal 180/90 Lisinopril 5mg, labetalol 5mg q5min #HLD lovastatin 40mg #Asthma Breo albuterol PRN #GERD Protonix 40mg Admission and Anticipated Discharge Date Admission Date: November 09, 2022 Supervising Physician Co-Signing Physician Notes I personally examined the patient and verified all [place] points of history and exam, discussed case, and agree with decision making with Dr Sierra still some difficulty word finding. No other problems. Extensive discussion about stroke and secondary risk reduction, discussed med management. Discussed outpatient rhythm monitoring. Discussed untreated sleep apnea and complications. Vitals noted, in general she is awake and alert pleasant no distress. HEENT normocephalic atraumatic mucous membranes moist. Breathing unlabored no acce ssory muscle use good effort. Neuro shows her to have some slow speech and difficulty with word finding most of the time, every now and then she will have bursts of somewhat fluent speech which makes her quite happy. CVAmed management/secondary risk reduction/speech/PT/OT. Hopefully home soon. Incidental note of pulmonary hypertension on echocardiogramafter further questioning, she has known sleep apnea, but has not used her CPAP and so long she is certain the machine is probably somewhere between outdated and moldy. Probably been at least a decade. Set up for repeat sleep study/start over. Educated extensively. Answered all questions the best my ability and to patient/'s satisfaction. Subjective 72 yo female PMHx HTN, HLD, GERD, Asthma, Osteoarthritis, and Sleep Apnea admitted for acute CVA. Beginning 11/07/22 pt began having symptoms of word finding difficulty without dysarthria. Began to improve 11/08/22. Acutely worsening 11/09/22 word finding difficultly with word finding, texting, and writing. Receptive language is normal throughout her course. Found to have M2 occlusion. This AM appears to be improving slightly. She was able to speak in short, simple sentences. Still having word-finding difficulty. She is frustrated. Admits to headache but denies changes in vision, chest pain, palpitations, SOB, N/V/D, dysuria. Review of Systems Review of Systems: reviewed, per HPI Physical Exam Physical Exam: General: patient resting comfortably, NAD, non-toxic in appearance, AA&O x 4, difficulty with word finding but able to communicate somewhat effectively and follows commands. Skin: warm, dry, intact HEENT: NC/AT, anicteric sclera, conjunctiva without injection, moist mucus membranes, trachea midline, no thyromegaly, no JVD Heart: +S1/S2, regular, no m/r/g Lungs: equal air entry bilaterally, no rales/rhonchi/wheezes Abd: +BS, soft, NT/ND, no masses/organomegaly/ascites Ext: warm, no clubbing/cyanosis or edema Neuro: nonfocal, patient AA&O x 4, continues to have word-finding difficulty, no facial droop, moving all extremities on command. Results & Data Results & Data Vital Signs (Past 12 Hours) Vital Signs Temp Pulse Pulse Resp BP Pulse Ox O2 Del Method 11/10/22 04:03 36.5 C 66 18 152/75 H 96 Room Air 11/09/22 22:47 36.5 C 78 18 145/80 H 96 Room Air 11/09/22 22:51 72 Laboratory Results Abnormal lab results 11/09/22 11/09/22 11/10/22 Range/Units 12: 12:30 05:21 RBC 4.02 L (4.20-5.40) M/uL Hgb 11.4 L (12.0-16.0) g/dl Hct 34.9 L (37.0-47.0) % Glucose 128 H (70-99(Fasting)) mg/dl POC Glucose 125 H (70-99) mg/dl Alkaline Phosphatase 122 H (34-104) U/L 11/10/22 Range/Units 05:21 RBC (4.20-5.40) M/uL Hgb (12.0-16.0) g/dl Hct (37.0-47.0) % Glucose 111 H (70-99(Fasting)) mg/dl POC Glucose (70-99) mg/dl Alkaline Phosphatase (34-104) U/L Diagnostic Findings CTA: 1. Suspected short segment occlusion with immediate reconstitution of the distal left M1 segment. A small thrombus cannot be excluded and findings could be correlated with acute left MCA territory infarct. Severe stenosis could appear similar although is considered less likely. 2. No additional sites of vessel occlusion. No intracranial aneurysm. CThead: No acute findings Resident Activity Tracking Resident Involvement: Resident Care Provided Care Provided: Adult [facility] Medicine
[2022-11-10] MEDS: ASPIRIN 81 MG ECTAB PO SCH (08:13)
[2022-11-10] MEDS: CLOPIDOGREL BISULFATE 75 MG TAB PO SCH (08:13)
[2022-11-10] MEDS: FEXOFENADINE HCL 180 MG TAB PO SCH (08:14)
[2022-11-10] MEDS: FLUTICASONE/VILANTEROL 200/25MCG 14 PUFFS/INHALER INH SCH (08:15)
[2022-11-10 08:31] LABS: Estimated Average Glucose 131 mg/dl; Hemoglobin A1C 6.2 % (4.5-5.6)
[2022-11-10] MEDS: lisinopril 5 MG TAB PO SCH (11:24)
--- NOTE | 2022-11-10 11:43 | XCELERA ---
[id number]
--- NOTE | 2022-11-10 18:49 | Billing Data ---
Date of Service November 10, 2022 Coding Level of Care Code 99090 SUB INP/OBS CARE MIN
[2022-11-10] MEDS: LOVASTATIN 20 MG TAB PO SCH (20:15)
[2022-11-10] MEDS: PANTOprazole 40 MG TAB PO SCH (20:15)
[2022-11-11 06:21] LABS: Basophils # (auto) 0.03 K/uL (0-0.2); Basophils % (auto) 0.5 %; Eosinophils # (auto) 0.33 K/uL (0-0.50); Eosinophils % (auto) 5.7 %; Hematocrit (blood only) 35.5 % (37.0-47.0); Hemoglobin 11.8 g/dl (12.0-16.0); Immature Granulocytes # (auto) 0.01 K/uL (0.01-0.20); Immature Granulocytes % (auto) 0.2 %; Lymphocytes # (auto) 1.41 K/uL (1.2-3.4); Lymphocytes % (auto) 24.3 %; Mean Corpuscular Hemoglobin 28.6 pg (25.0-34.0); Mean Corpuscular Hgb Conc 33.2 g/dL (32.0-36.0); Mean Corpuscular Volume 86.2 fL (80.0-100.0); Mean Platelet Volume 10.5 fL (9.4-12.4); Monocytes # (auto) 0.53 K/uL (0.11-0.59); Monocytes % (auto) 9.1 %; Neutrophils % (auto) 60.2 %; Platelet Count 239 K/uL (130-400); RDW Coefficient of Variation 13.2 % (11.5-14.5); RDW Standard Deviation 41.2 fL (36.4-46.3); Red Blood Count 4.12 M/uL (4.20-5.40); White Blood Count 5.81 K/ul (4.8-10.8)
[2022-11-11 06:27] LABS: BUN Creatinine Ratio 26.2 (10-20); Calcium 9.2 mg/dl (8.6-10.3); Creatinine Clr Calc Pharmacy 74.6 ml/min; Est GFR (African American) 103.5 ml/min; Est GFR (Non-African American) 89.3 ml/min
[2022-11-11] MEDS: ASPIRIN 81 MG ECTAB PO SCH (08:16)
[2022-11-11] MEDS: FEXOFENADINE HCL 180 MG TAB PO SCH (08:17)
[2022-11-11] MEDS: CLOPIDOGREL BISULFATE 75 MG TAB PO SCH (08:17)
[2022-11-11] MEDS: FLUTICASONE/VILANTEROL 200/25MCG 14 PUFFS/INHALER INH SCH (08:18)
[2022-11-11] MEDS: lisinopril 5 MG TAB PO SCH (08:18)
--- NOTE | 2022-11-11 08:23 | Hospitalist Progress Note ---
Date of Service November 11, 2022 Assessment & Plan (1) Acute CVA (cerebrovascular accident): (2) HTN (hypertension): (3) Hyperlipidemia: (4) Asthma: (5) Acid reflux: Plan #Acute CVA M2 occlusion Expressive aphasia includes speech/text/written word No dysarthria, no difficulty with comprehension NIHSS0 EKG NSR, no hx afib Per neuro: DAPT x3wks-->Plavix monotherapy, distal segmental occlusion not amenable to thrombectomy, outside window for thrombolytics Per speech therapy: will need continued services outpatient for aphasia, apraxia, and reading comprehension. Pt agreeable to home health. #HTN Delayed stroke presentation Treat to goal 180/90 Lisinopril 5mg, labetalol 5mg q5min #HLD lovastatin 40mg #Asthma Breo albuterol PRN #GERD Protonix 40mg Admission and Anticipated Discharge Date Admission Date: November 09, 2022 Subjective 72 yo female PMHx HTN, HLD, GERD, Asthma, Osteoarthritis, and Sleep Apnea admitted for acute CVA. Beginning 11/07/22 pt began having symptoms of word finding difficulty without dysarthria. Began to improve 11/08/22. Acutely worsening 11/09/22 word finding difficultly with word finding, texting, and writing. Receptive language is normal throughout her course. Found to have M2 occlusion. This AM appears to be improving slightly. She was able to speak in short, simple sentences. Still having word-finding difficulty. She is frustrated. Admits to headache but denies changes in vision, chest pain, palpitations, SOB, N/V/D, dysuria. Review of Systems Review of Systems: reviewed, per HPI Physical Exam Physical Exam: General: patient resting comfortably, NAD, non-toxic in appearance, AA&O x 4, difficulty with word finding but able to communicate somewhat effectively and follows commands. Skin: warm, dry, intact HEENT: NC/AT, anicteric sclera, conjunctiva without injection, moist mucus membranes, trachea midline, no thyromegaly, no JVD Heart: +S1/S2, regular, no m/r/g Lungs: equal air entry bilaterally, no rales/rhonchi/wheezes Abd: +BS, soft, NT/ND, no masses/organomegaly/ascites Ext: warm, no clubbing/cyanosis or edema Neuro: nonfocal, patient AA&O x 4, continues to have word-finding difficulty, no facial droop, moving all extremities on command. Results & Data Results & Data Vital Signs (Past 12 Hours) Vital Signs Temp Pulse Pulse Resp BP Pulse Ox O2 Del Method 11/11/22 08:06 36.4 C L 77 17 114/81 97 Room Air 11/11/22 06:59 65 11/11/22 02:48 36.5 C 67 18 153/78 H 94 Room Air 11/10/22 23:50 67 11/10/22 22:46 36.6 C 68 18 162/76 H 96 Room Air
[2022-11-11] MEDS ORDERED: STROKE PATIENT DISCHARGE STA (12:32)
--- NOTE | 2022-11-11 13:02 | Pharmacy Report ---
- Date of Service November 11, 2022 - Pharmacy CVA/TIA Medication Review Medications to Prevent Stroke handout has been added to the patients discharge packet. Antiplatelet(s) * Aspirin and clopidogrel Cholesterol * High intensity statin deferred due to prior intolerance of many statins. Plans to increase the lovastatin at discharge, which is the only statin she has tolerated per Dr. Sierra. DVT Prophylaxis * This assessment was done at the time of discharge - inpatient DVT ppx no longer needed Therapeutic Anticoagulation * No history of Afib/Aflutter noted Type 2 Diabetes * Patient does not have T2DM (HbA1c consistent with *pre*-diabetes)
--- NOTE | 2022-11-11 16:01 | Discharge Summary ---
Date of Service November 11, 2022 Admission HPI Per Admitting Provider On Saturday 'something happened'. Was having acute word finding difficulty. No dysarthria. yetserday improved, but today was having difficulty finding the right words and 'cant make words to go right.' Had trouble texting and writing. Receptive language is normally. +expressive aphasia. No weakness, numbness, tingling +L sided heachache intermittently since saturday not currently present. +ttp. On was having some numbness/tingling behind he No chest pain or chest pressure No hx of stroke or clots no T2DM hx HTN, high today and over 200. no history of [place] Hx JEN --> supposed to be on CPAP Asthma well controlled +severe myalgias on lipitor in the past. Tried one other statin, then was able to tolerate lovastatin. on lisinopril. took today. no other Headache, hypertension NIHSS 0 today Distal and resolved, not a candidate for thrombectomy Medical History: Reviewed Medications: Reviewed Surgical History: Reviewed Family history: Reviewed Allergies: Reviewed Social History: No tobacco. Code Status: DNR/DNI Admission Exam Per Admitting Provider General: A&Ox3. NAD. Cooperative. HEENT: Atraumatic, normocephalic. Pulm: CTAB A&P. -wheezes, -rales, -rhonchi. Symmetrical chest rise. No increased work of breathing. No respiratory distress. Cardiac: RRR, -mrg. Radial pulses intact and symmetrical. Abdominal: Nontender, nondistended, soft. BS present. CRANIAL NERVES: II: Pupils equal and reactive, no relative afferent pupillary defect, no VF cuts III, IV, : EOM intact, no gaze preference or deviation, no nystagmus. V: normal sensation in V1, V2, and V3 segments bilaterally VII: no asymmetry, no nasolabial fold flattening VIII: normal hearing to speech IX, X: normal palatal elevation, no uvular deviation XI: 5/5 head turn and 5/5 shoulder shrug bilaterally XII: midline tongue protrusion MOTOR: RUE: 5/5 audio video tech strength, finger flexion/extension, interosseus LUE: 5/5 audio video tech strength, finger flexion/extension, interosseus RLE: 5/5 to hip flexion ankle dorsiflexion/plantarflexion LLE: 5/5 to hip flexion, ankle dorsiflexion/plantarflexion no clonus SENSORY: Normal to touch in upper and lower extremities without deficit or asymmetry Principal Diagnosis CVA with residual mild apahasia Discharge Exam General: patient resting comfortably, NAD, non-toxic in appearance, AA&O x 4, answers questions appropriately and follows commands. Skin: warm, dry, intact HEENT: NC/AT, anicteric sclera, conjunctiva without injection, moist mucus membranes, trachea midline, no thyromegaly, no JVD Heart: +S1/S2, regular, no m/r/g Lungs: equal air entry bilaterally, no rales/rhonchi/wheezes Abd: +BS, soft, NT/ND, no masses/organomegaly/ascites Ext: warm, no clubbing/cyanosis or edema Neuro: nonfocal, patient AA&O x 4, only very mild expressive aphasia remains, no facial droop, moving all extremities on command. Discharge Data Allergies Allergy/AdvReac Type Severity Reaction Status Date / Time atorvastatin AdvReac Unknown LEG PAINS Verified 11/09/22 15:23 codeine AdvReac Unknown GI UPSET Verified 11/09/22 15:23 pravastatin AdvReac Unknown LEG PAINS Verified 11/09/22 15:23 simvastatin AdvReac Unknown LEG PAINS Verified 11/09/22 15:23 cephalexin [From Keflex] AdvReac convulsions Verified 11/09/22 15:23 Unclassified Drugs Allergy Unknown SEASONAL Uncoded 11/09/22 15:23 ALLERGIES - COUGHING, SNEEZING, TRIGGERS FOR ASTHMA Consultations 11/09/22 14:43 ED Decision to Admit Stat 11/10/22 18:45 [facility] Routine 11/10/22 18:47 [facility] Routine Ordered Studies 11/09/22 12:18 CT angio head w con Stat CT angio neck with con Stat CT head/brain wo con Stat 11/09/22 15:01 MRI Brain [MR brain wo con] Stat Hospital Course (1) Acute CVA (cerebrovascular accident): (2) HTN (hypertension): (3) Hyperlipidemia: (4) Asthma: (5) Acid reflux: Plan #Acute CVA M2 occlusion Expressive aphasia includes speech/text/written word No dysarthria, no difficulty with comprehension NIHSS0 EKG NSR, no hx afib Per neuro: DAPT x3wks-->Plavix monotherapy, distal segmental occlusion not amenable to thrombectomy, outside window for thrombolytics Per speech therapy: will need continued services outpatient for aphasia, apraxia, and reading comprehension. Pt agreeable to home health. #HTN Delayed stroke presentation Treat to goal 180/90 Lisinopril 5mg, labetalol 5mg q5min #HLD lovastatin 40mg #Asthma Breo albuterol PRN #GERD Protonix 40mg Total Time Total Time Spent Total Time Spent (In Minutes): <30 Discharge Plan Discharge Items Patient Disposition: Home - Home Health Services Reason For Visit: M2 CVA Discharge Diagnosis: Expressive Aphasia 2/2 CVA Condition on Discharge: Good Activity: As commented below Activity Comment: Resume activity as tolerated Non-emergency contact: Primary Care Provider Call non-emergency contact if: you have any medication questions and your symptoms worsen Follow-up/Referrals: Shelby Colon DO [Primary Care Provider] - (Please contact your PCP for discharge follow up appointment within 5 to 7 days.) Diet: Regular Addtl Attending Provider Instructions: You were admitted to the hospital for difficulty speaking and found to have had a stroke. It was determined through imaging and the timeline of events that no stroke interventions were appropriately and you were treated supportively. The exact cause of your stroke is unknown. Some strokes are caused by changes in the arteries of the brain directly and others are caused by plaques or clots coming from the arteries or veins outside the brain. For this reason it is important that you have your sleep apnea addressed and wear a heart monitor for a period of time. A nurse navigator will reach out to you to arrange this. You will also need to arrange for speech therapy as an outpatient. A prescription was provided to you for this purpose. While you were in the hospital you were started on two new medications clopidogrel(Plavix) and an 81mg(baby) aspirin. Your dose of lovastatin was also increased from 20mg to 40mg. After leaving the hospital it is very important that you take these medications as prescribed, as they will help to prevent a future stroke. A discharge summary will be sent to your primary care physician to ensure continuity of care. Please bring this discharge summary with you to your next office appointment so that your provider can review it at that time. Medications: Your medication list has been reviewed and reconciled upon discharge to ensure accuracy and continuity of care. An updated list of all your medications is included with your hospital discharge paperwork. Please review this list closely and make note of any changes to your medications. Follow up appointments: - Make a follow up appointment with your PCP within the next week. It is very important that you follow up with them shortly after discharge from the hospital. - Keep all of your follow up appointments as already scheduled. If you cannot make an appointment, notify your provider. CONTACT YOUR PRIMARY CARE PROVIDER if you experience any of the following: Difficulty following your treatment plan - Difficulty taking any of your medications CALL 911 OR GO TO THE EMERGENCY DEPARTMENT if you experience any of the following: any increasing difficulty with speech, any facial droop, or weakness on one side of your body. Sudden, severe abdominal pain or nausea/vomiting - Severe chest pain or chest pain that radiates to your jaw or arm - Sudden, s evere shortness of breath or difficulty breathing Pending Studies at Discharge: No Stand-Alone Forms: My [facility], Smoking Cessation, Medications to Prevent Stroke Medications and DC Order Prescriptions: New clopidogrel 75 mg Tablet 75 mg PO QAM Qty: 30 1RF aspirin 81 mg Tablet,Delayed Release (Dr/Ec) 81 mg PO DAILY Qty: 30 1RF lovastatin 20 mg Tablet 40 mg PO HS Qty: 30 1RF clopidogrel 75 mg tablet 75 mg PO DAILY Qty: 30 0RF aspirin [Adult Aspirin Regimen] 81 mg tablet,delayed release (DR/EC) 81 mg PO DAILY Qty: 30 0RF lovastatin 40 mg tablet 40 mg PO HS Qty: 30 0RF Continued acetaminophen [Tylenol Extra Strength] 500 mg Tablet 500 mg PO Q6H PRN (Reason: Pain) 2 Days Qty: 20 lisinopril 5 mg tablet 5 mg PO DAILY Qty: 90 3RF fexofenadine [Chinyere Allergy] 180 mg tablet 180 mg PO DAILY Qty: 30 0RF fluticasone propion-salmeterol [Advair Diskus] 500-50 mcg/dose blister with device 1 inh inhalation BID Qty: 3 1RF albuterol sulfate 90 mcg/actuation Hfa Aerosol Inhaler 1 puff INHALATION Q6H PRN (Reason: SOB) omeprazole 20 mg capsule,delayed release(DR/EC) 20 mg PO QPM Discontinued lovastatin 20 mg tablet 20 mg PO HS Discharge Orders: Discharge Order (Routine); Ordered 11/11/22 Ordered By: Rolando Abdi/Other Patient Handouts: Prediabetes, 5 Steps for Eating Healthier, Stroke Prevention Activity, Stroke Stop Another Health Tips, ED Sleep Apnea, Obstructive Admission Data Admit Date/Time: 11/09/22 15:27 Attending Provider: Dhaval Nesbitt Admit Provider: Mckinley Lombardi Primary Care Provider: Shelby Colon Other Providers: Mkcinley Lombardi Other Interventions: Discharge Summary Assessment (RN) Last Done: 11/11/22 12:57 Supervising Physician Co-Signing Physician Notes I personally examined the patient and verified all [place] points of history and exam, discussed case, and agree with decision making with Dr Sierra word finding difficulty improved some. Stable for home. Expresses understanding of plans. Vitals noted, in general she is awake and alert pleasant no distress. HEENT normocephalic atraumatic mucous membranes moist. Breathing unlabored no accessory muscle use good effort. Neuro shows her to have some slow speech and difficulty with word finding most of the time, But more fluent than yesterday CVAmed management/secondary risk reduction, outpatient event monitor to rule out occult A-fib, although likely atherosclerotic mechanism. Outpatient speech therapy. Incidental note of pulmonary hypertension on echocardiogramafter further questioning, she has known sleep apnea, but has not used her CPAP and so long she is certain the machine is probably somewhere between outdated and moldy. Probably been at least a decade. Set up for repeat sleep study/start over. Educated extensively. Resident Activity Tracking Resident Involvement: Resident Care Provided Care Provided: Adult Hospital Medicine
--- NOTE | 2022-11-11 19:09 | Billing Data ---
Date of Service November 11, 2022 Coding Level of Care Code 02061 IN/OBS DISCH 30 MIN/LESS
--- NOTE | 2022-11-12 12:51 | Pharmacy Report ---
Pharmacist Stroke Counseling - Date of Service November 12, 2022 - Scope: Pharmacy has been consulted to provide medication discharge counseling for this patient admitted with ischemic stroke as per the Pharmacist Discharge Counseling for Stroke Patients Protocol. - Medications on Discharge: Home Medications Medication Instructions Recorded Confirmed acetaminophen 500 mg tablet 500 mg PO Q6H PRN Pain 2 days #20 08/20/17 11/12/22 (Tylenol Extra Strength) tabs albuterol sulfate 90 mcg/actuation 1 puff inhalation Q6H PRN SOB 10/06/18 11/12/22 aerosol inhaler omeprazole 20 mg capsule,delayed 20 mg PO QPM 11/09/22 11/12/22 release New Rx's Medication Instructions Recorded fexofenadine 180 mg tablet 180 mg PO DAILY #30 tabs 09/27/22 (Chinyere Allergy) fluticasone 500 mcg-salmeterol 50 1 inh inhalation BID #3 ea 09/27/22 mcg/dose blistr powdr for inhalation (Advair Diskus) lisinopril 5 mg tablet 5 mg PO DAILY #90 tabs 10/22/22 aspirin 81 mg tablet,delayed 81 mg PO DAILY #30 tabs 11/11/22 release (Adult Aspirin Regimen) clopidogrel 75 mg tablet 75 mg PO DAILY #30 tabs 11/11/22 lovastatin 40 mg tablet 40 mg PO DAILY #30 tabs 11/12/22 - Action: The above medications, specifically ones for stroke treatment/prophylaxis, have been reviewed in detail with the patient prior to discharge. This includes indication, common adverse reactions, drug interactions, and medication administration. Medication counseling has been employed using the teach-back method to ensure understanding. - Outcome: The patient demonstrated understanding of the medications. Additional comments: * Patient reports leg pain with increased Lovastatin dose so far. Denies redness/warmth/swelling to indicate VTE. Recommended Co-Q 10 50 mg PO once daily or discuss dose decrease with PCP at follow up appointment on Saturday. * Denied being told how long to continue DAPT. Counseled to take 3 weeks of both baby aspirin and clopidogrel and then stop baby aspirin and continue clopidogrel for life. Last dose of baby aspirin to be 12/02/22. * Takes omeprazole at home for acid reflux. Counseled on significant drug-drug interaction with clopidogrel. Instructed patient to stop taking Omeprazole at this time and ask PCP at follow up appointment Saturday about pantoprazole or famotidine. * Sent a tiger message to patient's PCP to inform her of our conversation given vast amount of information covered. Thank you for allowing pharmacy to be involved in the care of this patient. Please call [phone] with any additional questions
--- NOTE | 2022-11-12 19:27 | Electrocardiogram Report ---
Test Reason : Blood Pressure : / mmHG Vent. Rate : 068 BPM Atrial Rate : 068 BPM P-R Int : 140 ms QRS Dur : 084 ms QT Int : 388 ms P-R-T Axes : 062 013 057 degrees QTc Int : 412 ms Normal sinus rhythm Possible Left atrial enlargement Borderline ECG When compared with ECG of 17-JUL-2011 10:06, No significant change was found Confirmed by Tex Montemayor ([id number]) on 11/12/2022 7:27:19 PM Referred By: REFERRED SELF Confirmed By:Jalen Montemayor
== END 2022-11-11 13:45 | disposition home health service (06) | DRG 66 ==
LOC: ED 12:09 → 4W 15:27 → SUATTDRO 15:27 → 4W 16:36